=== PATIENT | female | born 1960 | race American Indian/Alaskan Native ===

== ENCOUNTER 2016-12-23 20:43 | Emergency (ER) | payer MEDICARE ==
--- NOTE | 2016-12-24 00:49 | Emergency Department Report ---
HPI - General Chief Complaint: Abdominal Pain Time Seen by Provider: 12/23/16 23:59 - HPI HPI: This is a 56-year-old [place] female who presents the emergency department with complaint of pain to the bilateral lower extremities as well as swelling for the past 3 days. The patient comes here from a transition house where she is currently living because her current house has too many steps to deal with and the patient just had surgery last Sunday. The patient had lumbar decompression and fusion by Dr. Brooks at [facility]. She has been taking medications for her back and does not complain of any worsening of her back discomfort or concern for infection. She denies any problems with bowel or bladder, numbness or paresthesias or any neurological deficits. She denies any history of CHF, DVT, PE. ED Past Medical Hx - Past Medical History Hx Hypertension: Yes Hx Congestive Heart Failure: Yes Hx Diabetes: No Hx GERD: Yes Hx Arthritis: Yes (Bilateral knees) Hx Psychiatric Treatment: Yes Hx Asthma: No Hx COPD: No Hx Dementia: Yes Hx HIV: No Additional medical history: Crack cocaine drug use, Staph infections - Surgical History Past Surgical History?: Yes Hx Cholecystectomy: Yes Hx Appendectomy: Yes Additional Surgical History: Back surgery, Left knee surgery, Polinidal cyst removed. Bladder sling, Jim foot surgery, Jim hand surgery, Esophagus surgery, hysterectomy - Social History Smoking Status: Current Every Day Smoker Substance Use Type: None - Medications Home Medications: Home Medications Medication Instructions Recorded Confirmed Last Taken Type Losartan/Hydrochlorothiazide 1 each PO DAILY 06/13/14 10/30/16 Unknown History [Hyzaar 100-25 TAB] Potassium Chloride [K-Dur] 20 meq PO BID 06/13/14 10/30/16 Unknown History Ondansetron [Zofran Odt] 8 mg PO BID 05/16/16 10/30/16 Unknown History Hydralazine HCl [Apresoline TAB] 50 mg PO BID 10/30/16 10/30/16 Unknown History Oxymorphone HCl [Opana ER] 10 mg PO Q8H 10/30/16 10/30/16 Unknown History Paroxetine HCl [PARoxetine] 40 mg PO QAM 10/30/16 10/30/16 Unknown History Diazepam 5 mg PO QID 11/01/16 11/01/16 Unknown History HYDROcodone/APAP 7.5-325 [[place] 7.5 mg PO Q6H 11/01/16 11/01/16 Unknown History 7.5-325 mg per 15 ML] Aspirin [Aspirin BABY CHEW TAB] 81 mg PO QDAY #30 tab.chew 11/02/16 Unknown Rx Diltiazem Cd [Cardizem CD] 240 mg PO QDAY #30 capsule 11/02/16 Unknown Rx Esomeprazole Magnesium [NexIUM] 40 mg PO DAILY #30 capsule.dr 11/02/16 Unknown Rx Levofloxacin [Levaquin] 750 mg PO QDAY #7 tablet 11/02/16 Unknown Rx PARoxetine 40 mg PO DAILY #30 11/02/16 Unknown Rx Pramipexole [Mirapex] 0.5 mg PO DAILY #30 tablet 11/02/16 Unknown Rx chlordiazePOXIDE [Librium] 10 mg PO Q8H #30 capsule 11/02/16 Unknown Rx oxyCODONE /ACETAMINOPHEN [Percocet 2 tab PO Q6H PRN #15 tablet 11/02/16 Unknown Rx 5/325 mg] ED Review of Systems ROS: Stated complaint: BODY PAIN Other details as noted in HPI Comment: All other systems reviewed and negative Constitutional: denies: chills, fever Eyes: denies: eye pain, eye discharge, vision change ENT: denies: ear pain, throat pain Respiratory: denies: cough, shortness of breath, wheezing Cardiovascular: edema. denies: chest pain, palpitations Gastrointestinal: denies: abdominal pain, nausea, diarrhea Genitourinary: denies: urgency, dysuria, discharge Musculoskeletal: arthralgia, myalgia Skin: denies: rash, lesions Neurological: denies: headache, weakness, paresthesias Physical Exam - Physical Exam Vital Signs: Vital Signs 12/23/16 12/23/16 12/23/16 21:02 21:11 22:54 Temperature 98 F 98 F 98 F Pulse Rate 85 85 87 Respiratory 18 18 18 Rate Blood Pressure 134/74 Blood Pressure 134/74 179/70 [Left] O2 Sat by Pulse 98 96 98 Oximetry 12/24/16 00:13 Temperature Pulse Rate 87 Respiratory 18 Rate Blood Pressure Blood Pressure 159/80 [Left] O2 Sat by Pulse 96 Oximetry Physical Exam: GENERAL: The patient is well-developed well-nourished. HEENT: Normocephalic. Atraumatic. Extraocular motions are intact. Patient has moist mucous membranes. Pupils equal reactive to light bilaterally. NECK: Supple. Trachea is midline. CHEST/LUNGS: Clear to auscultation. There is no respiratory distress noted. HEART/CARDIOVASCULAR: Regular. There is no tachycardia. There is no gallop rub or murmur. ABDOMEN: Abdomen is soft, nontender. Patient has normal bowel sounds. There is no abdominal distention. SKIN: Patient has mild to moderate right lateral lower extremity swelling. No skin color change, erythema, warmth, fluctuance or rash. NEURO: The patient is awake, alert, and oriented. The patient is cooperative. The patient has no focal neurologic deficits. The patient has normal speech and gait. Cranial nerves II through XII grossly intact. MUSCULOSKELETAL: There is no tenderness or deformity. There is no limitation range of motion. There is no evidence of acute injury. Muscle strength 5 out of 5 upper and lower extremities including EHL bilaterally. BACK: Patient has some mild tenderness to palpation along the upper lumbar and lower thoracic back where the patient has recent spinal surgery. However there is no signs of expanding hematoma, there is no bleeding or purulent drainage, no skin color changes to show any signs or symptoms of infection. They appear to be clean incisional wounds. ED Course Vital Signs 12/23/16 12/23/16 12/23/16 21:02 21:11 22:54 Temperature 98 F 98 F 98 F Pulse Rate 85 85 87 Respiratory 18 18 18 Rate Blood Pressure 134/74 Blood Pressure 134/74 179/70 [Left] O2 Sat by Pulse 98 96 98 Oximetry 12/24/16 00:13 Temperature Pulse Rate 87 Respiratory 18 Rate Blood Pressure Blood Pressure 159/80 [Left] O2 Sat by Pulse 96 Oximetry ED Medical Decision Making - Lab Data Result diagrams: 12/24/16 00:37 12/24/16 00:37 - Radiology Data Radiology results: report reviewed Bilateral lower extremity venous Doppler negative for DVT. - Medical Decision Making This is a 56-year-old female presents to the emergency department from her transitional rehabilitation Center with complaint of a few days of lower extremity swelling. Patient is postop from spinal fusion. There is been no further trauma. Patient's labs are mostly unremarkable. She has a low BNP level and has no complaints of shortness of breath. The swelling does not appear to be consistent with any cellulitis or rash. Patient eventually had a lower extremity venous Doppler bilaterally that did not have any signs of DVT. Patient was seen ambulatory in the emergency department and appeared stable doing so. She does not have any problems with bowel or bladder, numbness or paresthesias or any neurological deficits. She appears very low suspicion for any epidural abscess, cauda equina or cord compression syndrome. The patient has follow-up with her orthopedic spinal surgeon coming up this week. She has appropriate pain medications and is not complaining of any significant back discomfort. She appears safe for discharge back to her rehabilitation center and will return to the ER with any worsening of her symptoms or any acute distress. I thought about given the patient's more Lasix for some diuresis for her lower extremity swelling. However the patient does have some renal insufficiency. This appears to be acute on chronic as the patient has had episodes of renal insufficiency in the past. However I do not want to make her renal sufficiency worse and therefore we are avoiding Lasix at this time. - Differential Diagnosis DVT, CHF, venous stasis Critical Care Time: No Critical care attestation.: If time is entered above; I have spent that time in minutes in the direct care of this critically ill patient, excluding procedure time. ED Disposition Clinical Impression: Swelling of both lower extremities, Bilateral leg pain, Renal insufficiency Disposition: DISCHARGED TO HOME OR SELFCARE Is pt being admited?: No Condition: Stable Instructions: Leg Edema (ED), Arthralgia (ED), Impaired Kidney Function (ED) Additional Instructions: Please follow-up with your orthopedic surgeon as previous scheduled. Follow-up with your primary care doctor in the next few days. Return to the emergency department with any worsening of your symptoms or any acute distress. Referrals: DAE ORTEGA MD [Primary Care Provider] - 3-5 Days Time of Disposition: 07:11
[2016-12-24 00:51] LABS: Basophils % (Auto) 0.8 % (0.0-1.8); Eosinophils % (Auto) 3.5 % (0.0-4.3); Hematocrit 28.4 % (30.3-42.9); Hemoglobin 9.3 gm/dl (10.1-14.3); Mean Corpuscular HGB Conc 33 % (30-34); Mean Corpuscular Hemoglobin 28 pg (28-32); Mean Corpuscular Volume 86 fl (79-97); Platelet Count 292 K/mm3 (140-440); Red Cell Distribution Width 15.7 % (13.2-15.2); White Blood Count 7.6 K/mm3 (4.5-11.0)
[2016-12-24 00:54] LABS: Bilirubin,Urine NEG (Negative); Blood,Urine NEG (Negative); Ketones,Urine NEG (Negative); Leukocyte Esterase,Urine NEG (Negative); Nitrite,Urine NEG (Negative); Protein,Urine <15 mg/dL mg/dL (Negative); RBC,Urine < 1.0 /HPF (0.0-6.0); Urobilinogen,Urine < 2.0 mg/dL (<2.0)
[2016-12-24 01:16] LABS: Alanine Aminotransferase 8 units/L (7-56); Albumin 3.4 g/dL (3.9-5); Alkaline Phosphatase 120 units/L (35-129); Anion Gap 22 mmol/L; BUN/Creatinine Ratio 17.89; Bilirubin,Total 0.3 mg/dL (0.1-1.2); Blood Urea Nitrogen 34 mg/dL (7-17); Calcium 8.3 mg/dL (8.4-10.2); Carbon Dioxide 18 mmol/L (22-30); Glucose 118 mg/dL (65-100); Lipase 33 units/L (13-60); Potassium 4.2 mmol/L (3.6-5.0); Sodium 142 mmol/L (137-145); Total Protein 6.9 g/dL (6.3-8.2)
[2016-12-24] MEDS ORDERED: DILAUDID IV ONE ×2 (01:18→09:04)
[2016-12-24 01:34] LABS: Bilirubin,Direct < 0.2 mg/dL (0-0.2); Bilirubin,Indirect 0.1 mg/dL
[2016-12-24 05:27] VITALS: BP 180/96
[2016-12-24] MEDS ORDERED: DILAUDID ONE (08:55)
== END 2016-12-24 11:39 | disposition home or self-care (01) ==
LOC: ED 20:43
DX: R22.43 Localized swelling, mass and lump, lower limb, bilateral (principal); N28.9 Disorder of kidney and ureter, unspecified; M79.604 Pain in right leg; M79.605 Pain in left leg; I10 Essential (primary) hypertension; I50.9 Heart failure, unspecified; K21.9 Gastro-esophageal reflux disease without esophagitis; M17.0 Bilateral primary osteoarthritis of knee; F03.90 Unspecified dementia, unspecified severity, without behavioral disturbance, psychotic disturbance, mood disturbance, and anxiety; F17.200 Nicotine dependence, unspecified, uncomplicated; Z79.82 Long term (current) use of aspirin
CPT/HCPCS: 36415; 80048; 80074; 81001; 83690; 83880; 85025; 93970; 96374; 96376; 99285; J1170

== ENCOUNTER 2022-05-02 18:15 | Inpatient (IN) | payer MEDICARE ==
[2022-05-02] MEDS ORDERED: SODIUM CHLORIDE 0.9% 1000 ML 1,000 ML IV ONE (21:04)
--- NOTE | 2022-05-02 21:10 | Emergency Department Report ---
- General Chief complaint: Weakness Stated complaint: GENERAL WEAKNESS Time Seen by Provider: 05/02/22 21:04 Source: patient, EMS Mode of arrival: Stretcher Limitations: No Limitations - History of Present Illness Initial comments: 52-year-old female with history of hypertension, heart failure and arthritis who now presents with generalized body weakness with a fall from bed 2 days ago and was unable to get up. Patient denies any fever or chills. No urinary symptoms reported. No other modifying or associated factors reported. MD Complaint: generalized weakness - Related Data Home Medications Medication Instructions Recorded Confirmed Last Taken Ondansetron [Zofran Odt] 8 mg PO BID 05/16/16 07/21/19 Unknown Hydralazine HCl [Apresoline TAB] 50 mg PO BID 10/30/16 07/21/19 Unknown HYDROcodone/Acetaminop 7.5-325 7.5 mg PO Q6H 11/01/16 07/21/19 Unknown [[place] 7.5-325 mg per 15 ML] FLUoxetine HCL [Prozac] 20 mg PO DAILY 07/21/19 07/21/19 Unknown Previous Rx's Medication Instructions Recorded Last Taken Type Aspirin [Aspirin BABY CHEW TAB] 81 mg PO QDAY #30 tab.chew 07/23/19 Unknown Rx Benztropine [Cogentin] 1 mg PO TID #90 07/23/19 Unknown Rx Gabapentin 100 mg PO Q8HR #90 cap 07/23/19 Unknown Rx Ipratropium/Albuter (Nf) 2 puff IH QID #1 inha 07/23/19 Unknown Rx [Combivent (Nf)] Isosorbide Dinitrate [Isosorbide 30 mg PO DAILY #30 07/23/19 Unknown Rx Dinitrate ER] Lasix TAB 40 mg PO DAILY #30 07/23/19 Unknown Rx Losartan [Cozaar] 100 mg PO DAILY #30 tablet 07/23/19 Unknown Rx Mirtazapine [Remeron 15mg TAB] 15 mg PO PRN #30 07/23/19 Unknown Rx PARoxetine [Paxil] 40 mg PO DAILY #30 tablet 07/23/19 Unknown Rx Pantoprazole [Protonix TAB] 40 mg PO DAILY #30 tablet 07/23/19 Unknown Rx Potassium Chloride [K-Dur] 20 meq PO QDAY #30 07/23/19 Unknown Rx Pramipexole [Mirapex] 0.5 mg PO DAILY #30 tablet 07/23/19 Unknown Rx Zolpidem [Ambien] 5 mg PO QHS PRN #30 tablet 07/23/19 Unknown Rx amLODIPine 5 mg PO DAILY #30 07/23/19 Unknown Rx carvediloL [Coreg] 12.5 mg PO BID #60 07/23/19 Unknown Rx oxyCODONE /ACETAMINOPHEN [Percocet 2 tab PO Q6H PRN #15 tablet 07/23/19 Unknown Rx 5/325 mg] Allergies Allergy/AdvReac Type Severity Reaction Status Date / Time lisinopril Allergy Swelling Verified 05/02/22 18:21 morphine Allergy Swelling Verified 05/02/22 18:21 ED Review of Systems ROS: Stated complaint: GENERAL WEAKNESS Other details as noted in HPI Comment: All other systems reviewed and negative Constitutional: weakness Musculoskeletal: myalgia Neurological: weakness ED Past Medical Hx - Past Medical History Previous Medical History?: Yes Hx Hypertension: Yes Hx Congestive Heart Failure: Yes Hx Diabetes: No Hx GERD: Yes Hx Arthritis: Yes (Bilateral knees) Hx Psychiatric Treatment: Yes Hx Asthma: No Hx COPD: No Hx Dementia: Yes Hx HIV: No Additional medical history: Crack cocaine drug use, Staph infections - Surgical History Past Surgical History?: Yes Hx Cholecystectomy: Yes Hx Appendectomy: Yes Additional Surgical History: Back surgery, Left knee surgery, Polinidal cyst removed. Bladder sling, Jim foot surgery, Jim hand surgery, Esophagus surgery, hysterectomy - Social History Smoking Status: Unknown if ever smoked Substance Use Type: None - Medications Home Medications: Home Medications Medication Instructions Recorded Confirmed Last Taken Type Ondansetron [Zofran Odt] 8 mg PO BID 05/16/16 07/21/19 Unknown History Hydralazine HCl [Apresoline TAB] 50 mg PO BID 10/30/16 07/21/19 Unknown History HYDROcodone/Acetaminop 7.5-325 7.5 mg PO Q6H 11/01/16 07/21/19 Unknown History [[place] 7.5-325 mg per 15 ML] FLUoxetine HCL [Prozac] 20 mg PO DAILY 07/21/19 07/21/19 Unknown History Aspirin [Aspirin BABY CHEW TAB] 81 mg PO QDAY #30 tab.chew 07/23/19 Unknown Rx Benztropine [Cogentin] 1 mg PO TID #90 07/23/19 Unknown Rx Gabapentin 100 mg PO Q8HR #90 cap 07/23/19 Unknown Rx Ipratropium/Albuter (Nf) 2 puff IH QID #1 inha 07/23/19 Unknown Rx [Combivent (Nf)] Isosorbide Dinitrate [Isosorbide 30 mg PO DAILY #30 07/23/19 Unknown Rx Dinitrate ER] Lasix TAB 40 mg PO DAILY #30 07/23/19 Unknown Rx Losartan [Cozaar] 100 mg PO DAILY #30 tablet 07/23/19 Unknown Rx Mirtazapine [Remeron 15mg TAB] 15 mg PO PRN #30 07/23/19 Unknown Rx PARoxetine [Paxil] 40 mg PO DAILY #30 tablet 07/23/19 Unknown Rx Pantoprazole [Protonix TAB] 40 mg PO DAILY #30 tablet 07/23/19 Unknown Rx Potassium Chloride [K-Dur] 20 meq PO QDAY #30 07/23/19 Unknown Rx Pramipexole [Mirapex] 0.5 mg PO DAILY #30 tablet 07/23/19 Unknown Rx Zolpidem [Ambien] 5 mg PO QHS PRN #30 tablet 07/23/19 Unknown Rx amLODIPine 5 mg PO DAILY #30 07/23/19 Unknown Rx carvediloL [Coreg] 12.5 mg PO BID #60 07/23/19 Unknown Rx oxyCODONE /ACETAMINOPHEN [Percocet 2 tab PO Q6H PRN #15 tablet 07/23/19 Unknown Rx 5/325 mg] ED Physical Exam - General Limitations: No Limitations General appearance: alert, in no apparent distress - Head Head exam: Present: normal inspection - Eye Eye exam: Present: normal appearance Pupils: Present: normal accommodation - ENT ENT exam: Present: normal exam, normal orophraynx, mucous membranes dry - Neck Neck exam: Present: normal inspection, full ROM. Absent: tenderness - Respiratory Respiratory exam: Present: normal lung sounds bilaterally. Absent: respiratory distress, accessory muscle use - Cardiovascular Cardiovascular Exam: Present: regular rate, normal rhythm, normal heart sounds - GI/Abdominal GI/Abdominal exam: Present: soft, normal bowel sounds. Absent: distended, tenderness - Extremities Exam Extremities exam: Present: normal inspection, normal capillary refill. Absent: tenderness, pedal edema - Back Exam Back exam: Absent: tenderness - Neurological Exam Neurological exam: Present: alert, oriented X3 - Psychiatric Psychiatric exam: Present: normal affect, normal mood - Skin Skin exam: Present: warm, normal color ED Course Vital Signs 05/02/22 05/02/22 05/02/22 18:19 20:14 21:22 Temperature 97.9 F Pulse Rate 100 H 85 Respiratory 14 16 Rate Blood Pressure 106/70 146/67 [Left] O2 Sat by Pulse 95 95 95 Oximetry - Consultations Consultation #1: 05/02/22 23:55 Dr Jordan consulted who accept pt for further evaluation and treatment ED Medical Decision Making - Lab Data Result diagrams: 05/02/22 22:01 05/02/22 22:01 - EKG Data -: EKG Interpreted by Me EKG shows normal: sinus rhythm Rate: normal - EKG Data 05/02/22 23:53 EG noted with normal sinus rhythm at a rate of 80 bpm, with LVH in this abnormal ECG. - Medical Decision Making here with generalized muscle weakness-- concern for rhabdomyelitis considering the extensive staying on the floor for the last 2 days--we will go ahead and hydrate and check routine labs including total CK-- Lab reviewed and noted with elevated total CK with acute renal failure with elevated BUN/Cr that is likely as a result of dehydration that lead to rhabdomyelitis-- Dr Jordan consulted for admission Critical care attestation.: If time is entered above; I have spent that time in minutes in the direct care of this critically ill patient, excluding procedure time. ED Disposition Clinical Impression: Generalized weakness Rhabdomyolysis Qualifiers: Rhabdomyolysis type: non-traumatic Qualified Code(s): M62.82 - Rhabdomyolysis Disposition: ADMITTED INPATIENT Is pt being admited?: Yes Does the pt Need Aspirin: No Condition: Stable Instructions: Weakness, [id number] Referrals: PRIMARY CARE, [Primary Care Provider] - 3-5 Days Time of Disposition: 23:56
[2022-05-02 22:31] LABS: Basophils % (Auto) 0.2 % (0.0-1.8); Hematocrit 35.5 % (30.3-42.9); Hemoglobin 11.3 gm/dl (10.1-14.3); Lymphocytes % (Auto) 26.1 % (13.4-35.0); Mean Corpuscular HGB Conc 32 % (30-34); Mean Corpuscular Volume 88 fl (79-97); Monocytes # (Auto) 0.9 K/mm3 (0.0-0.8); Monocytes % (Auto) 8.2 % (0.0-7.3); Platelet Count 191 K/mm3 (140-440); Red Blood Count 4.04 M/mm3 (3.65-5.03); Red Cell Distribution Width 17.3 % (13.2-15.2)
[2022-05-02 22:41] LABS: INR 0.98 (0.87-1.13)
[2022-05-02 22:48] LABS: Albumin 3.7 g/dL (3.9-5); Calcium 8.6 mg/dL (8.4-10.2)
[2022-05-02] MEDS ORDERED: MORPHINE 4 MG/1 ML INJ IV PRN (23:57)
[2022-05-02] MEDS ORDERED: ALBUTEROL 2.5 MG/3 ML NEBU IH PRN (23:57)
[2022-05-02] MEDS ORDERED: MORPHINE 2 MG/1 ML INJ IV PRN (23:57)
--- NOTE | 2022-05-03 00:05 | History and Physical Report ---
History of Present Illness Date of examination: 05/03/22 Date of admission: 05/03/22 Chief complaint: Generalized weakness History of present illness: 52-year-old female with history of hypertension, heart failure and arthritis who now presents with generalized body weakness with a fall from bed 2 days ago and was unable to get up. Patient denies any fever or chills. No urinary symptoms reported. No other modifying or associated factors reported. In the emergency room patient is found to have BUN of 78 and creatinine 6.2 also CK 1166.Lab reviewed and noted with elevated total CK with acute renal failure with elevated BUN/Cr that is likely as a result of dehydration that lead to rhabdomyolysis and PEYTON. We will put the patient on IV fluid and will consult nephrology for evaluation Past History Past Medical History: arthritis, GERD, heart failure, hypertension, other (Crack cocaine drug use, Staph infections, dementia psychiatric) Past Surgical History: cholecystectomy, hysterectomy, Other (Back surgery, Left knee surgery, Polinidal cyst removed. Bladder sling, Jim foot surgery, Jim hand surgery, Esophagus surgery, hysterectomy, appendectomy) Social history: no significant social history Family history: hypertension Medications and Allergies Allergies Allergy/AdvReac Type Severity Reaction Status Date / Time lisinopril Allergy Swelling Verified 05/02/22 18:21 morphine Allergy Swelling Verified 05/02/22 18:21 Home Medications Medication Instructions Recorded Confirmed Last Taken Type Ondansetron [Zofran Odt] 8 mg PO BID 05/16/16 07/21/19 Unknown History Hydralazine HCl [Apresoline TAB] 50 mg PO BID 10/30/16 07/21/19 Unknown History HYDROcodone/Acetaminop 7.5-325 7.5 mg PO Q6H 11/01/16 07/21/19 Unknown History [[place] 7.5-325 mg per 15 ML] FLUoxetine HCL [Prozac] 20 mg PO DAILY 07/21/19 07/21/19 Unknown History Aspirin [Aspirin BABY CHEW TAB] 81 mg PO QDAY #30 tab.chew 07/23/19 Unknown Rx Benztropine [Cogentin] 1 mg PO TID #90 07/23/19 Unknown Rx Gabapentin 100 mg PO Q8HR #90 cap 07/23/19 Unknown Rx Ipratropium/Albuter (Nf) 2 puff IH QID #1 inha 07/23/19 Unknown Rx [Combivent (Nf)] Isosorbide Dinitrate [Isosorbide 30 mg PO DAILY #30 07/23/19 Unknown Rx Dinitrate ER] Lasix TAB 40 mg PO DAILY #30 07/23/19 Unknown Rx Losartan [Cozaar] 100 mg PO DAILY #30 tablet 07/23/19 Unknown Rx Mirtazapine [Remeron 15mg TAB] 15 mg PO PRN #30 07/23/19 Unknown Rx PARoxetine [Paxil] 40 mg PO DAILY #30 tablet 07/23/19 Unknown Rx Pantoprazole [Protonix TAB] 40 mg PO DAILY #30 tablet 07/23/19 Unknown Rx Potassium Chloride [K-Dur] 20 meq PO QDAY #30 07/23/19 Unknown Rx Pramipexole [Mirapex] 0.5 mg PO DAILY #30 tablet 07/23/19 Unknown Rx Zolpidem [Ambien] 5 mg PO QHS PRN #30 tablet 07/23/19 Unknown Rx amLODIPine 5 mg PO DAILY #30 07/23/19 Unknown Rx carvediloL [Coreg] 12.5 mg PO BID #60 07/23/19 Unknown Rx oxyCODONE /ACETAMINOPHEN [Percocet 2 tab PO Q6H PRN #15 tablet 07/23/19 Unknown Rx 5/325 mg] Review of Systems All systems: negative Constitutional: fatigue, weakness, malaise, other (Fall) Exam - Constitutional Vitals: Temp Pulse Resp BP Pulse Ox 97.9 F 85 16 146/67 95 05/02/22 18:19 05/02/22 20:14 05/02/22 20:14 05/02/22 20:14 05/02/22 21:22 General appearance: Present: no acute distress, well-nourished - EENT Eyes: Present: PERRL ENT: hearing intact, clear oral mucosa - Neck Neck: Present: supple, normal ROM - Respiratory Respiratory effort: normal Respiratory: bilateral: CTA - Cardiovascular Heart Sounds: Present: S1 & S2. Absent: rub, click - Extremities Extremities: pulses symmetrical, No edema Peripheral Pulses: within normal limits - Abdominal General gastrointestinal: Present: soft, non-tender, non-distended, normal bowel sounds Female genitourinary: Present: normal - Integumentary Integumentary: Present: clear, warm, dry - Musculoskeletal Musculoskeletal: gait normal, strength equal bilaterally - Psychiatric Psychiatric: appropriate mood/affect, intact judgment & insight - Neurologic Neurologic: CNII-XII intact, moves all extremities Results - Labs CBC & Chem 7: 05/02/22 22:01 05/02/22 22: Labs: Laboratory Last Values WBC 11.5 K/mm3 (4.5-11.0) H 05/02/22 22: RBC 4.04 M/mm3 (3.65-5.03) 05/02/22 22: Hgb 11.3 gm/dl (10.1-14.3) 05/02/22 22: Hct 35.5 % (30.3-42.9) 05/02/22 22: MCV 88 fl (79-97) 05/02/22 22: MCH 28 pg (28-32) 05/02/22 22: MCHC 32 % (30-34) 05/02/22: RDW 17.3 % (13.2-15.2) H 05/02/22 22: Plt Count 191 K/mm3 (140-440) 05/02/22 22: Lymph % (Auto) 26.1 % (13.4-35.0) 05/02/22 22: [place] % (Auto) 8.2 % (0.0-7.3) H 05/02/22 22: Eos % (Auto) 0.0 % (0.0-4.3) 05/02/22 22: Baso % (Auto) 0.2 % (0.0-1.8) 05/02/22 22: Lymph # (Auto) 3.0 K/mm3 (1.2-5.4) 05/02/22 22: [place] # (Auto) 0.9 K/mm3 (0.0-0.8) H 05/02/22 22: Eos # (Auto) 0.0 K/mm3 (0.0-0.4) 05/02/22 22: Baso # (Auto) 0.0 K/mm3 (0.0-0.1) 05/02/22 22: Seg Neutrophils % 65.5 % (40.0-70.0) 05/02/22 22: Seg Neutrophils # 7.5 K/mm3 (1.8-7.7) 05/02/22 22: PT 14.4 Sec. (12.2-14.9) 05/02/22 22: INR 0.98 (0.87-1.13) 05/02/22 22:01 Sodium 139 mmol/L (137-145) 05/02/22 22: Potassium 4.1 mmol/L (3.6-5.0) 05/02/22 22: Chloride 97.7 mmol/L (98-107) L 05/02/22 22: Carbon Dioxide 20 mmol/L (22-30) L 05/02/22 22:01 Anion Gap 25 mmol/L 05/02/22 22: BUN 78 mg/dL (7-17) H 05/02/22 22: Creatinine 6.2 mg/dL (0.6-1.2) H 05/02/22 22: Estimated GFR 8 ml/min 05/02/22 22: BUN/Creatinine Ratio 13 % 05/02/22 22: Glucose 85 mg/dL (65-100) 05/02/22 22: Calcium 8.6 mg/dL (8.4-10.2) 05/02/22 22: Total Bilirubin 0.30 mg/dL (0.1-1.2) 05/02/22 22: AST 42 units/L (5-40) H 05/02/22 22: ALT 16 units/L (7-56) 05/02/22 22: Alkaline Phosphatase 95 units/L (35-129) 05/02/22 22: Total Creatine Kinase 1166 units/L (30-135) H 05/02/22 22: Total Protein 7.6 g/dL (6.3-8.2) 05/02/22 22: Albumin 3.7 g/dL (3.9-5) L 05/02/22 22: Albumin/Globulin Ratio 0.9 % 05/02/22 22:01 Assessment and Plan VTE prophylaxis?: Mechanical Plan of care discussed with patient/family: Yes - Patient Problems (1) PEYTON (acute kidney injury) Current Visit: Yes Status: Acute Plan to address problem: Admit the patient to the medical telemetry. Avoid nephrotoxic drug. Renally dose medication. We will discontinue Lasix and losartan. D5 half-normal saline at the rate of 125 cc/h. Nephrology evaluation. Recheck BMP in the morning (2) Rhabdomyolysis Current Visit: Yes Status: Acute Qualifiers: Rhabdomyolysis type: non-traumatic Qualified Code(s): M62.82 - Rhabdomyolysis Plan to address problem: D5 half-normal saline at the rate of 125 cc/h. Nephrology evaluation. Recheck BMP and CK in the morning . (3) Generalized weakness Current Visit: Yes Status: Acute (4) CHF exacerbation Current Visit: No Status: Acute Plan to address problem: stable. We continue the home medication. Avoid fluid overload (5) Cardiomyopathy Current Visit: No Status: Acute Plan to address problem: Stable. We continue the home medication. Outpatient follow-up with cardiology (6) Cocaine abuse Current Visit: No Status: Acute Plan to address problem: We counseled the patient regarding quit taking cocaine. (7) Dementia Current Visit: Yes Status: Acute Plan to address problem: Stable. We continue the home medication. (8) DVT prophylaxis Current Visit: No Status: Acute Plan to address problem: SCD for DVT prophylaxis. Pepcid 20 mg p.o. twice daily for GI prophylaxis. Patient is a full code
[2022-05-03] MEDS: ACETAMINOPHEN 325 MG TAB PO PRN ×2 (01:31→13:15)
[2022-05-03] MEDS: D5W/0.45% NACL 1,000 ML IV SCH ×2 (01:50→09:11)
[2022-05-03] MEDS: IPRATROPIUM/ALBUTEROL SULFATE 3 ML AMPUL.NEB IH SCH ×4 (03:07→20:24)
[2022-05-03] MEDS: BENZTROPINE 1 MG TAB PO SCH ×3 (08:00→21:17)
--- NOTE | 2022-05-03 09:03 | XRay Report ---
CHEST 1 VIEW 05/03/2022 7:38 AM INDICATION / CLINICAL INFORMATION: Evaluate for heart failure vs pneumonia. COMPARISON: One view of the chest from 07/20/2019. FINDINGS: SUPPORT DEVICES: None. HEART / MEDIASTINUM: Similar mild cardiomegaly. No other significant abnormality. LUNGS / PLEURA: Mild bilateral interstitial opacities are seen without other significant pulmonary ab normalities. No significant pleural effusion. No pneumothorax. ADDITIONAL FINDINGS: No significant additional findings. IMPRESSION: Similar mild cardiomegaly with nonspecific bilateral pulmonary opacities, favored to represent atelec tasis/edema. Pneumonia cannot be entirely excluded. Signer Name: Julito Christine MD Signed: 05/03/2022 8:59 AM Workstation Name: [id number]
[2022-05-03] MEDS: ASPIRIN 81 MG TAB CHEW PO SCH (09:12)
[2022-05-03] MEDS: FAMOTIDINE 10 MG TAB PO SCH ×2 (09:12→21:17)
[2022-05-03] MEDS: carvediloL 12.5 MG TAB PO SCH ×2 (09:12→21:16)
[2022-05-03] MEDS: FLUoxetine 20 MG CAP PO SCH (09:12)
[2022-05-03] MEDS: amLODIPine 5 MG TAB PO SCH (09:12)
--- NOTE | 2022-05-03 09:12 | Consultation ---
History of Present Illness - Reason for Consult Consult date: 05/03/22 acute renal failure - History of Present Illness 52-year-old woman with history of hypertension, heart failure, and arthritis who presents with generalized body weakness, fall from bed 2 days ago and was unable to get up. 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 Patient denies any fever or chills. No urinary symptoms reported. Denies dyspnea, edema. Notes appetite was poor for past few days. Notes feeling weak still. Past History Past Medical History: arthritis, GERD, heart failure, hypertension, other (Crack cocaine drug use, Staph infections, dementia psychiatric) Past Surgical History: cholecystectomy, hysterectomy, Other (Back surgery, Left knee surgery, Polinidal cyst removed. Bladder sling, Jim foot surgery, Jim hand surgery, Esophagus surgery, hysterectomy, appendectomy) Social history: no significant social history Family history: hypertension Medications and Allergies Allergies Allergy/AdvReac Type Severity Reaction Status Date / Time lisinopril Allergy Swelling Verified 05/02/22 18:21 morphine Allergy Swelling Verified 05/02/22 18:21 Home Medications Medication Instructions Recorded Confirmed Last Taken Type Ondansetron [Zofran Odt] 8 mg PO BID 05/16/16 05/03/22 Unknown History Hydralazine HCl [Apresoline TAB] 50 mg PO BID 10/30/16 05/03/22 Unknown History HYDROcodone/Acetaminop 7.5-325 7.5 mg PO Q6H 11/01/16 05/03/22 Unknown History [[place] 7.5-325 mg per 15 ML] FLUoxetine HCL [Prozac] 20 mg PO DAILY 07/21/19 05/03/22 Unknown History Aspirin [Aspirin BABY CHEW TAB] 81 mg PO QDAY #30 tab.chew 07/23/19 05/03/22 Unknown Rx Benztropine [Cogentin] 1 mg PO TID #90 07/23/19 05/03/22 Unknown Rx Gabapentin 100 mg PO Q8HR #90 cap 07/23/19 05/03/22 Unknown Rx Ipratropium/Albuter (Nf) 2 puff IH QID #1 inha 07/23/19 05/03/22 Unknown Rx [Combivent (Nf)] Isosorbide Dinitrate [Isosorbide 30 mg PO DAILY #30 07/23/19 05/03/22 Unknown Rx Dinitrate ER] Lasix TAB 40 mg PO DAILY #30 07/23/19 05/03/22 Unknown Rx Losartan [Cozaar] 100 mg PO DAILY #30 tablet 07/23/19 05/03/22 Unknown Rx Mirtazapine [Remeron 15mg TAB] 15 mg PO PRN #30 07/23/19 05/03/22 Unknown Rx PARoxetine [Paxil] 40 mg PO DAILY #30 tablet 07/23/19 05/03/22 Unknown Rx Pantoprazole [Protonix TAB] 40 mg PO DAILY #30 tablet 07/23/19 05/03/22 Unknown Rx Potassium Chloride [K-Dur] 20 meq PO QDAY #30 07/23/19 05/03/22 Unknown Rx Pramipexole [Mirapex] 0.5 mg PO DAILY #30 tablet 07/23/19 05/03/22 Unknown Rx Zolpidem [Ambien] 5 mg PO QHS PRN #30 tablet 07/23/19 05/03/22 Unknown Rx amLODIPine 5 mg PO DAILY #30 07/23/19 05/03/22 Unknown Rx carvediloL [Coreg] 12.5 mg PO BID #60 07/23/19 05/03/22 Unknown Rx oxyCODONE /ACETAMINOPHEN [Percocet 2 tab PO Q6H PRN #15 tablet 07/23/19 05/03/22 Unknown Rx 5/325 mg] Active Meds: Active Medications Acetaminophen (Acetaminophen 325 Mg Tab) 650 mg PO Q4H PRN PRN Reason: Pain MILD(1-3)/Fever >100.5/PALMA Last Admin: 05/03/22 01:31 Dose: 650 mg Albuterol (Albuterol 2.5 Mg/3 Ml Nebu) 2.5 mg IH Q3HRT PRN PRN Reason: Shortness Of Breath Albuterol/Ipratropium (Ipratropium/Albuterol Sulfate 3 Ml Ampul.Neb) 1 ampul IH Q6HRT [facility] Last Admin: 05/03/22 03:07 Dose: Not Given Amlodipine Besylate (Amlodipine 5 Mg Tab) 5 mg PO DAILY [facility] Aspirin (Aspirin 81 Mg Tab Chew) 81 mg PO QDAY LUCIO Benztropine Mesylate (Benztropine 1 Mg Tab) 1 mg PO TID LUCIO Carvedilol (Carvedilol 12.5 Mg Tab) 12.5 mg PO BID LUCIO Famotidine (Famotidine 10 Mg Tab) 10 mg PO BID LUCIO Fluoxetine HCl (Fluoxetine 20 Mg Cap) 20 mg PO DAILY [facility] Hydralazine HCl (Hydralazine 25 Mg Tab) 50 mg PO BID [facility] Dextrose/Sodium Chloride (D5/0.45ns) 1,000 mls @ 125 mls/hr IV DIRECT LUCIO Last Admin: 05/03/22 01:50 Dose: 125 mls/hr Isosorbide Mononitrate (Isosorbide Mononitrate Er 30 Mg Tab) 30 mg PO DAILY [facility] Ondansetron HCl (Ondansetron 4 Mg/2 Ml Inj) 4 mg IV Q8H PRN PRN Reason: Nausea And Vomiting Sodium Chloride (Sodium Chloride 0.9% 10 Ml Flush Syringe) 10 ml IV BID [facility] Sodium Chloride (Sodium Chloride 0.9% 10 Ml Flush Syringe) 10 ml IV PRN PRN PRN Reason: LINE FLUSH Review of Systems All systems: negative (as per HPI) Exam - Vital Signs Vital signs: Vital Signs Temp Pulse Resp BP Pulse Ox 97.9 F 100 H 14 106/70 95 05/02/22 18:19 05/02/22 18:19 05/02/22 18:19 05/02/22 18:19 05/02/22 18:19 - Physical Exam Narrative exam: General appearance: Present: no acute distress, well-nourished - EENT Eyes: Present: PERRL ENT: hearing intact, clear oral mucosa - Neck Neck: Present: supple, normal ROM - Respiratory Respiratory effort: normal Respiratory: bilateral: CTA - Cardiovascular Heart Sounds: Present: S1 & S2. - Extremities Extremities: pulses symmetrical, No edema Peripheral Pulses: within normal limits - Abdominal General gastrointestinal: Present: soft, non-distended, normal bowel sounds Female genitourinary: Present: normal - Integumentary Integumentary: Present: clear, warm, dry - Musculoskeletal Musculoskeletal: gait normal, strength equal bilaterally - Psychiatric Psychiatric: appropriate mood/affect, intact judgment & insight - Neurologic Neurologic: CNII-XII intact, moves all extremities Results - Lab Results 05/02/22 22:01 05/02/22 22:01 Most recent lab results Calcium 8.6 mg/dL (8.4-10.2) 05/02/22 22:01 Assessment and Plan # Acute Kidney Disease: suspect underlying CKD in setting of solitary kidney, cardiac disease. PEYTON likely due to rhabdomyolysis s/p fall vs tubular injury in setting of acute illness - isotonic fluid challenge for rhabdomyolysis as tolerated - renal ultrasound reviewed- note solitary kidney s/p surgery, no acute issues - check serologies, urinalysis, UP/C, PTH to help with chronicity, consider GN involvement - avoid nephrotoxins - agree to hold diuretic, MIA/ARB for now - renally dose medications - strict Is/Os - no immediate need for renal replacement therapy pending course # Mild Rhabdomyolysis: gentle IVF as tolerated # Lactic Acidosis, Possible Pneumonia: CXR noted, has history of CHF/cardiomyopathy # Dementia: per primary # HTN: BP stable on current regimen, avoid hypotension
[2022-05-03] MEDS: hydrALAZINE 25 MG TAB PO SCH ×2 (09:13→21:16)
[2022-05-03] MEDS ORDERED: FAMOTIDINE 20 MG TAB PO SCH (10:00)
[2022-05-03] MEDS ORDERED: NON-FORMULARY EACH (Hydralazine Hcl [Apresoline Tab] 50 MG Tablet) PO SCH (10:00)
[2022-05-03] MEDS ORDERED: ISOSORBIDE DINITRATE 40 MG PO SCH (10:00)
--- NOTE | 2022-05-03 11:01 | Ultrasound Report ---
ULTRASOUND RENAL INDICATION / CLINICAL INFORMATION: PEYTON. COMPARISON: None available. FINDINGS: RIGHT KIDNEY: Absent LEFT KIDNEY: Length = 10.1 cm. - Echogenicity: Normal. - Cortical Thickness: Normal. - Hydronephrosis: None. - Cyst / Mass: None. - Stones: None seen. URINARY BLADDER: No significant abnormality. FREE FLUID: None. ADDITIONAL FINDINGS: None. IMPRESSION: 1. Status post right nephrectomy, otherwise no significant sonographic abnormality. Signer Name: Sotero Lee DO Signed: 05/03/2022 10:56 AM Workstation Name: [id number]
--- NOTE | 2022-05-03 11:16 | Electrocardiograph Report ---
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
--- NOTE | 2022-05-03 11:42 | Event Note ---
Date: 05/03/22 Patient was evaluated this morning, she was found to be hemodynamically stable. Patient did become febrile early in the morning to a temp of 101.1. The patient will continue further work-up due to concerns for sepsis in the setting of acute respiratory failure. #Acute hypoxic respiratory failure #Possible COVID-19 pneumonia #Lactic acidosis Lactic acid 3.0. Continue trending lactic acid until unremarkable. - etiology: Possible COVID-19 infection - baseline oxygen requirements: Room air - supplemental oxygen: 3 L nasal cannula - Continue protocol: continue pulse oximetry, wean oxygen as tolerated, airborne and droplet precautions. Pending coronavirus PCR, BNP, procalcitonin. Chest x-ray revealing nonspecific bilateral pulmonary opacities that could represent atelectasis versus edema versus pneumonia. 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 Nephrology consulted; pending recs. Pending renal ultrasound. #Rhabdomyolysisruled out CK 1166. Discontinuing aggressive IV fluid resuscitation due to possible volume overload. #Chronic systolic heart failure #Cardiomyopathy Continue goal-directed therapy #Dementia Continue to orient the patient, open blinds during the daylight, and turn off TV and lights at 10 PM #Mild protein caloric malnutrition Albumin 3.7 Starting dietary supplementation. #Coordination of CARE time: 30 minutes. Total visit time equals 30 or more minutes with greater than 50% spent [id number] on coordination of care and counseling. #Advanced care planning -Disease education conducted, care plan discussed, diagnoses discussed, prognosis discussed, and patient acknowledges understanding with care plan -Time: +30 min
[2022-05-03 13:02] LABS: Basophils % (Auto) 0.2 % (0.0-1.8); Eosinophils % (Auto) 0.3 % (0.0-4.3); Hematocrit 31.3 % (30.3-42.9); Hemoglobin 10.2 gm/dl (10.1-14.3); Lymphocytes # (Auto) 1.5 K/mm3 (1.2-5.4); Lymphocytes % (Auto) 14.3 % (13.4-35.0); Mean Corpuscular HGB Conc 33 % (30-34); Mean Corpuscular Volume 87 fl (79-97); Monocytes # (Auto) 0.8 K/mm3 (0.0-0.8); Monocytes % (Auto) 7.5 % (0.0-7.3); Platelet Count 159 K/mm3 (140-440); Red Blood Count 3.59 M/mm3 (3.65-5.03); Red Cell Distribution Width 17.2 % (13.2-15.2)
[2022-05-03 13:03] LABS: Calcium 8.4 mg/dL (8.4-10.2)
[2022-05-03] MEDS: SODIUM CHLORIDE 0.9% 1000 ML 1,000 ML IV SCH (16:01)
[2022-05-03 17:11] LABS: Protein/Creatinine Ratio,Urine 0.24
[2022-05-03 17:24] LABS: Bilirubin,Urine Negative (Negative); Blood,Urine Negative (Negative); Color,Urine Yellow (Yellow); Protein,Urine <30 mg dL mg/dL (Negative); Urobilinogen,Urine < 2.0 mg/dL (<2.0)
[2022-05-04] MEDS: ACETAMINOPHEN 325 MG TAB PO PRN (02:31)
[2022-05-04] MEDS: SODIUM CHLORIDE 0.9% 1000 ML 1,000 ML IV SCH (05:49)
[2022-05-04] MEDS: BENZTROPINE 1 MG TAB PO SCH ×3 (07:50→20:38)
[2022-05-04] MEDS: IPRATROPIUM/ALBUTEROL SULFATE 3 ML AMPUL.NEB IH SCH ×3 (09:31→20:17)
[2022-05-04] MEDS: FLUoxetine 20 MG CAP PO SCH (10:00)
[2022-05-04] MEDS: FAMOTIDINE 10 MG TAB PO SCH ×2 (10:00→21:32)
[2022-05-04] MEDS: ASPIRIN 81 MG TAB CHEW PO SCH (10:00)
[2022-05-04] MEDS: hydrALAZINE 25 MG TAB PO SCH ×2 (10:00→21:32)
[2022-05-04] MEDS: carvediloL 12.5 MG TAB PO SCH ×2 (10:00→21:33)
[2022-05-04] MEDS: amLODIPine 5 MG TAB PO SCH (10:01)
[2022-05-04 11:57] LABS: Hematocrit 30.2 % (30.3-42.9); Hemoglobin 9.9 gm/dl (10.1-14.3); Mean Corpuscular HGB Conc 33 % (30-34); Mean Corpuscular Volume 87 fl (79-97); Platelet Count 151 K/mm3 (140-440); Red Blood Count 3.46 M/mm3 (3.65-5.03); Red Cell Distribution Width 17.4 % (13.2-15.2)
--- NOTE | 2022-05-04 12:07 | Progress Note ---
Assessment and Plan Assessment and plan: Patient was evaluated this morning, she was found to be hemodynamically stable. Patient did become febrile early in the morning to a temp of 101.1. The patient will continue further work-up due to concerns for sepsis in the setting of acute respiratory failure. #Acute hypoxic respiratory failure #Possible COVID-19 pneumonia #Lactic acidosis-resolved Lactic acid 3.0-->1.5 - etiology: Possible COVID-19 infection - baseline oxygen requirements: Room air - supplemental oxygen: 3 L nasal cannula - Continue protocol: continue pulse oximetry, wean oxygen as tolerated, airborne and droplet precautions. Pending coronavirus PCR. Unremarkable BNP and procalcitonin. Chest x-ray revealing nonspecific bilateral pulmonary opacities that could represent atelectasis versus edema versus pneumonia. - continue to monitor #PEYTON on CKD stage 4 Creatinine 6.2-->3.9 (baseline currently unknown) Renally dose meds and avoid nephrotoxic drugs. Nephrology consulted; pending recs. Pending renal ultrasound. #Rhabdomyolysisruled out CK 1166. Discontinuing aggressive IV fluid resuscitation due to possible volume overload. #Chronic systolic heart failure #Cardiomyopathy Continue goal-directed therapy. Unremarkable BMP. #Dementia Continue to orient the patient, open blinds during the daylight, and turn off TV and lights at 10 PM #Mild protein caloric malnutrition Albumin 3.7 Continue dietary supplementation. #Advanced care planning -Disease education conducted, care plan discussed, diagnoses discussed, prognosis discussed, and patient acknowledges understanding with care plan -Time: +30 min Disposition Plan: Continue medical management Total Time Spent with Patient (Minutes): 45-minute History Interval history: No acute events overnight. Hospitalist Physical - Constitutional Vitals: Temp Pulse Resp BP Pulse Ox 97.6 F 80 20 135/64 98 05/03/22 16:56 05/04/22 09:30 05/04/22 09:30 05/03/22 21:16 05/04/22 09:32 General appearance: Present: no acute distress, well-nourished - EENT Eyes: Present: PERRL, EOM intact ENT: hearing intact, clear oral mucosa, dentition normal - Neck Neck: Present: supple, normal ROM - Respiratory Respiratory effort: normal Respiratory: bilateral: diminished (3 L nasal cannula) - Cardiovascular Rhythm: regular Heart Sounds: Present: S1 & S2 - Extremities Extremities: no ischemia, pulses intact, pulses symmetrical, No edema, normal temperature, normal color Peripheral Pulses: within normal limits - Abdominal General gastrointestinal: soft, non-tender, non-distended, normal bowel sounds - Integumentary Integumentary: Present: clear, warm, dry - Psychiatric Psychiatric: appropriate mood/affect, intact judgment & insight, memory intact, cooperative - Neurologic Neurologic: CNII-XII intact, moves all extremities - Allied Health Allied health notes reviewed: nursing, case management Results - Labs CBC & Chem 7: 05/04/22 11:22 05/04/22 05:25 Labs: Laboratory Last Values WBC 10.5 K/mm3 (4.5-11.0) 05/04/22 11: RBC 3.46 M/mm3 (3.65-5.03) L 05/04/22 11: Hgb 9.9 gm/dl (10.1-14.3) L 05/04/22 11:22 Hct 30.2 % (30.3-42.9) L 05/04/22 11:22 MCV 87 fl (79-97) 05/04/22 11:22 MCH 29 pg (28-32) 05/04/22 11:22 MCHC 33 % (30-34) 05/04/22 11:22 RDW 17.4 % (13.2-15.2) H 05/04/22 11:22 Plt Count 151 K/mm3 (140-440) 05/04/22 11:22 Lymph % (Auto) Chief Chemist 05/04/22 11:22 [place] % (Auto) Chief Chemist 05/04/22 11:22 Eos % (Auto) Chief Chemist 05/04/22 11:22 Baso % (Auto) Chief Chemist 05/04/22 11:22 Lymph # (Auto) Chief Chemist 05/04/22 11:22 [place] # (Auto) Chief Chemist 05/04/22 11:22 Eos # (Auto) Chief Chemist 05/04/22 11:22 Baso # (Auto) Chief Chemist 05/04/22 11:22 Seg Neutrophils % Chief Chemist 05/04/22 11:22 Seg Neutrophils # Chief Chemist 05/04/22 11:22 PT 14.4 Sec. (12.2-14.9) 05/02/22 22:01 INR 0.98 (0.87-1.13) 05/02/22 22:01 Sodium 140 mmol/L (137-145) 05/04/22 05:25 Potassium 4.1 mmol/L (3.6-5.0) 05/04/22 05:25 Chloride 108.7 mmol/L (98-107) H 05/04/22 05:25 Carbon Dioxide 17 mmol/L (22-30) L 05/04/22 05:25 Anion Gap 18 mmol/L 05/04/22 05:25 BUN 58 mg/dL (7-17) H 05/04/22 05:25 Creatinine 3.9 mg/dL (0.6-1.2) H 05/04/22 05:25 Estimated GFR 14 ml/min 05/04/22 05:25 BUN/Creatinine Ratio 15 % 05/04/22 05:25 Glucose 98 mg/dL (65-100) 05/04/22 05:25 Lactic Acid 1.50 mmol/L (0.7-2.0) 05/03/22 12:13 Calcium 8.0 mg/dL (8.4-10.2) L 05/04/22 05:25 Phosphorus 3.20 mg/dL (2.5-4.5) 05/03/22 12:13 Total Bilirubin 0.30 mg/dL (0.1-1.2) 05/02/22 22:01 AST 42 units/L (5-40) H 05/02/22 22:01 ALT 16 units/L (7-56) 05/02/22 22:01 Alkaline Phosphatase 95 units/L (35-129) 05/02/22 22:01 Total Creatine Kinase 1166 units/L (30-135) H 05/02/22 22:01 NT-Pro-B Natriuret Pep 823.3 pg/mL (0-900) 05/03/22 12:13 Total Protein 7.6 g/dL (6.3-8.2) 05/02/22 22:01 Albumin 3.7 g/dL (3.9-5) L 05/02/22 22:01 Albumin/Globulin Ratio 0.9 % 05/02/22 22:01 Procalcitonin 51.09 ng/mL (<0.15) 05/03/22 12:13 PTH Intact 129.9 pg/mL (15-65) H 05/03/22 12:13 Urine Color Yellow (Yellow) 05/02/22 15:00 Urine Turbidity Clear (Clear) 05/02/22 15:00 Urine pH 5.0 (5.0-7.0) 05/02/22 15:00 Ur Specific [place] 1.010 (1.003-1.030) 05/02/22 15:00 Urine Protein <30 mg dl mg/dL (Negative) 05/02/22 15:00 Urine Glucose (UA) Negative mg/dL (Negative) 05/02/22 15:00 Urine Ketones Negative mg/dL (Negative) 05/02/22 15:00 Urine Blood Negative (Negative) 05/02/22 15:00 Urine Nitrite Negative (Negative) 05/02/22 15:00 Urine Bilirubin Negative (Negative) 05/02/22 15:00 Urine Urobilinogen < 2.0 mg/dL (<2.0) 05/02/22 15:00 Ur Leukocyte Esterase Negative (Negative) 05/02/22 15:00 Urine WBC (Auto) 1.0 /HPF (0.0-6.0) 05/02/22 15:00 Urine RBC (Auto) 1.0 /HPF (0.0-6.0) 05/02/22 15:00 U Epithel Cells (Auto) 1.0 /HPF (0-13.0) 05/02/22 15:00 Urine Creatinine 178.0 mg/dL (0.1-20.0) H 05/03/22 15:00 Protein/Creatinin Ratio 0.24 05/03/22 15:00 Urine Total Protein 42 mg/dL (5-11.8) H 05/03/22 15:00 Microbiology: Microbiology 05/03/22 12:20 Peripheral/Venous Blood Culture - Preliminary Culture in Progress 05/03/22 12:13 Peripheral/Venous Blood Culture - Preliminary Culture in Progress Gonzalez/IV: Voiding Method Indwelling Catheter Active Medications - Current Medications Current Medications: Generic Name Dose Route Start Last Admin Trade Name Freq PRN Reason Stop Dose Admin Acetaminophen 650 mg 05/02/22 23:57 05/04/22 02:31 Acetaminophen 325 Mg Tab PO 650 mg Q4H PRN Administration Pain MILD(1-3)/Fever >100.5/PALMA Albuterol 2.5 mg 05/02/22 23:57 05/04/22 03:33 Albuterol 2.5 Mg/3 Ml Nebu IH 2.5 mg Q3HRT PRN Administration Shortness Of Breath Albuterol/Ipratropium 1 ampul 05/03/22 20:00 05/04/22 09:31 Ipratropium/Albuterol Sulfate 3 Ml Ampul.Neb IH 1 ampul TIDRT LUCIO Administration Amlodipine Besylate 5 mg 05/03/22 10:00 05/04/22 10:01 Amlodipine 5 Mg Tab PO 5 mg DAILY LUCIO Administration Aspirin 81 mg 05/03/22 10:00 05/04/22 10:00 Aspirin 81 Mg Tab Chew PO 81 mg QDAY LUCIO Administration Benztropine Mesylate 1 mg 05/03/22 08:00 05/04/22 07:50 Benztropine 1 Mg Tab PO 1 mg TID LUCIO Administration Carvedilol 12.5 mg 05/03/22 10:00 05/04/22 10:00 Carvedilol 12.5 Mg Tab PO 12.5 mg BID LUCIO Administration Famotidine 10 mg 05/03/22 10:00 05/04/22 10:00 Famotidine 10 Mg Tab PO 10 mg BID LUCIO Administration Fluoxetine HCl 20 mg 05/03/22 10:00 05/04/22 10:00 Fluoxetine 20 Mg Cap PO 20 mg DAILY LUCIO Administration Hydralazine HCl 50 mg 05/03/22 10:00 05/04/22 10:00 Hydralazine 25 Mg Tab PO 50 mg BID LUCIO Administration Sodium Chloride 1,000 mls @ 75 mls/hr 05/03/22 09:30 05/04/22 05:49 Nacl 0.9% 1000 Ml IV 75 mls/hr DIRECT LUCIO Administration Isosorbide Mononitrate 30 mg 05/03/22 10:00 05/04/22 10:00 Isosorbide Mononitrate Er 30 Mg Tab PO 30 mg DAILY LUCIO Administration Ondansetron HCl 4 mg 05/02/22 23:57 Ondansetron 4 Mg/2 Ml Inj IV Q8H PRN Nausea And Vomiting Sodium Chloride 10 ml 05/03/22 10:00 05/04/22 10:01 Sodium Chloride 0.9% 10 Ml Flush Syringe IV 10 ml BID LUCIO Administration Sodium Chloride 10 ml 05/02/22 23:57 Sodium Chloride 0.9% 10 Ml Flush Syringe IV PRN PRN LINE FLUSH
[2022-05-04] MEDS ORDERED: ACETAMINOPHEN 325 MG TAB PO ONE (14:00)
--- NOTE | 2022-05-04 14:16 | Progress Note ---
Assessment and Plan # Acute Kidney Disease: suspect underlying CKD in setting of solitary kidney, cardiac disease. PEYTON likely due to rhabdomyolysis s/p fall vs tubular injury in setting of acute illness, creatinine improving 6.2->3.9 - continue isotonic fluid as tolerated - renal ultrasound reviewed- note solitary kidney s/p surgery, no acute issues - check serologies, urinalysis, UP/C bland so less concern for GN involvement - PTH 129 consistent with secondary hyperparathyroidism in CKD, Ca/P WNL - avoid nephrotoxins - agree to hold diuretic, MIA/ARB for now - renally dose medications - strict Is/Os - no immediate need for renal replacement therapy pending course # Mild Rhabdomyolysis: gentle IVF as tolerated # Lactic Acidosis, Possible Pneumonia: CXR noted, has history of CHF/cardiomyopathy, COVID test negative # Dementia: per primary # HTN: BP stable on current regimen, avoid hypotension Subjective Date of service: 05/04/22 Interval history: No acute issues noted, resting in bed Objective - Exam Narrative Exam: General appearance: Present: no acute distress, well-nourished - EENT Eyes: Present: PERRL ENT: hearing intact, clear oral mucosa - Neck Neck: Present: supple, normal ROM - Respiratory Respiratory effort: normal Respiratory: bilateral: CTA - Cardiovascular Heart Sounds: Present: S1 & S2. - Extremities Extremities: pulses symmetrical, No edema Peripheral Pulses: within normal limits - Abdominal General gastrointestinal: Present: soft, non-distended, normal bowel sounds Female genitourinary: Present: normal - Integumentary Integumentary: Present: clear, warm, dry - Musculoskeletal Musculoskeletal: gait normal, strength equal bilaterally - Psychiatric Psychiatric: appropriate mood/affect, intact judgment & insight - Neurologic Neurologic: CNII-XII intact, moves all extremities - Vital Signs Vital signs: Vital Signs - 12hr 05/04/22 05/04/22 05/04/22 03:34 09:30 09:32 Pulse Rate [ 77 80 Anterior Bilateral Throughout] Respiratory 20 20 Rate [Anterior Bilateral Throughout] O2 Sat by Pulse 98 Oximetry - Lab 05/04/22 11:22 05/04/22 05:25 Most recent lab results Calcium 8.0 mg/dL (8.4-10.2) L 05/04/22 05:25 Phosphorus 3.20 mg/dL (2.5-4.5) 05/03/22 12:13 Urine Creatinine 178.0 mg/dL (0.1-20.0) H 05/03/22 15:00 Urine Total Protein 42 mg/dL (5-11.8) H 05/03/22 15:00 Medications & Allergies - Medications Allergies/Adverse Reactions: Allergies lisinopril Allergy (Verified 05/02/22 18:21) Swelling morphine Allergy (Verified 05/02/22 18:21) Swelling Home Medications: Home Medications Medication Instructions Recorded Confirmed Last Taken Type Ondansetron [Zofran Odt] 8 mg PO BID 05/16/16 05/03/22 Unknown History Hydralazine HCl [Apresoline TAB] 50 mg PO BID 10/30/16 05/03/22 Unknown History HYDROcodone/Acetaminop 7.5-325 7.5 mg PO Q6H 11/01/16 05/03/22 Unknown History [[place] 7.5-325 mg per 15 ML] FLUoxetine HCL [Prozac] 20 mg PO DAILY 07/21/19 05/03/22 Unknown History Aspirin [Aspirin BABY CHEW TAB] 81 mg PO QDAY #30 tab.chew 07/23/19 05/03/22 Unknown Rx Benztropine [Cogentin] 1 mg PO TID #90 07/23/19 05/03/22 Unknown Rx Gabapentin 100 mg PO Q8HR #90 cap 07/23/19 05/03/22 Unknown Rx Ipratropium/Albuter (Nf) 2 puff IH QID #1 inha 07/23/19 05/03/22 Unknown Rx [Combivent (Nf)] Isosorbide Dinitrate [Isosorbide 30 mg PO DAILY #30 07/23/19 05/03/22 Unknown Rx Dinitrate ER] Lasix TAB 40 mg PO DAILY #30 07/23/19 05/03/22 Unknown Rx Losartan [Cozaar] 100 mg PO DAILY #30 tablet 07/23/19 05/03/22 Unknown Rx Mirtazapine [Remeron 15mg TAB] 15 mg PO PRN #30 07/23/19 05/03/22 Unknown Rx PARoxetine [Paxil] 40 mg PO DAILY #30 tablet 07/23/19 05/03/22 Unknown Rx Pantoprazole [Protonix TAB] 40 mg PO DAILY #30 tablet 07/23/19 05/03/22 Unknown Rx Potassium Chloride [K-Dur] 20 meq PO QDAY #30 07/23/19 05/03/22 Unknown Rx Pramipexole [Mirapex] 0.5 mg PO DAILY #30 tablet 07/23/19 05/03/22 Unknown Rx Zolpidem [Ambien] 5 mg PO QHS PRN #30 tablet 07/23/19 05/03/22 Unknown Rx amLODIPine 5 mg PO DAILY #30 07/23/19 05/03/22 Unknown Rx carvediloL [Coreg] 12.5 mg PO BID #60 07/23/19 05/03/22 Unknown Rx oxyCODONE /ACETAMINOPHEN [Percocet 2 tab PO Q6H PRN #15 tablet 07/23/19 05/03/22 Unknown Rx 5/325 mg] Active Medications: Generic Name Dose Route Start Last Admin Trade Name Freq PRN Reason Stop Dose Admin Acetaminophen 650 mg 05/02/22 23:57 05/04/22 02:31 Acetaminophen 325 Mg Tab PO 650 mg Q4H PRN Administration Pain MILD(1-3)/Fever >100.5/PALMA Albuterol 2.5 mg 05/02/22 23:57 05/04/22 03:33 Albuterol 2.5 Mg/3 Ml Nebu IH 2.5 mg Q3HRT PRN Administration Shortness Of Breath Albuterol/Ipratropium 1 ampul 05/03/22 20:00 05/04/22 09:31 Ipratropium/Albuterol Sulfate 3 Ml Ampul.Neb IH 1 ampul TIDRT LUCIO Administration Amlodipine Besylate 5 mg 05/03/22 10:00 05/04/22 10:01 Amlodipine 5 Mg Tab PO 5 mg DAILY LUCIO Administration Aspirin 81 mg 05/03/22 10:00 05/04/22 10:00 Aspirin 81 Mg Tab Chew PO 81 mg QDAY LUCIO Administration Benztropine Mesylate 1 mg 05/03/22 08:00 05/04/22 07:50 Benztropine 1 Mg Tab PO 1 mg TID LUCIO Administration Carvedilol 12.5 mg 05/03/22 10:00 05/04/22 10:00 Carvedilol 12.5 Mg Tab PO 12.5 mg BID LUCIO Administration Dexamethasone 8 mg 05/04/22 14:00 Dexamethasone 4 Mg/Ml Vial IV 05/13/22 10:01 DAILY LUCIO Famotidine 10 mg 05/03/22 10:00 05/04/22 10:00 Famotidine 10 Mg Tab PO 10 mg BID LUCIO Administration Fluoxetine HCl 20 mg 05/03/22 10:00 05/04/22 10:00 Fluoxetine 20 Mg Cap PO 20 mg DAILY LUCIO Administration Hydralazine HCl 50 mg 05/03/22 10:00 05/04/22 10:00 Hydralazine 25 Mg Tab PO 50 mg BID LUCIO Administration Sodium Chloride 1,000 mls @ 75 mls/hr 05/03/22 09:30 05/04/22 05:49 Nacl 0.9% 1000 Ml IV 75 mls/hr DIRECT LUCIO Administration Azithromycin 500 mg in 250 mls @ 250 mls/hr 05/04/22 14:00 Zithromax/Ns IV Q24H LUCIO Ceftriaxone Sodium 1 gm in 50 mls @ 100 mls/hr 05/04/22 14:00 Rocephin/Ns 1 Gm/50 Ml IV 05/09/22 13:59 Q24H [facility] Protocol Isosorbide Mononitrate 30 mg 05/03/22 10:00 05/04/22 10:00 Isosorbide Mononitrate Er 30 Mg Tab PO 30 mg DAILY LUCIO Administration Loperamide HCl 2 mg 05/04/22 14:03 Loperamide 2 Mg Cap PO Q4H LUCIO Ondansetron HCl 4 mg 05/02/22 23:57 Ondansetron 4 Mg/2 Ml Inj IV Q8H PRN Nausea And Vomiting Sodium Chloride 10 ml 05/03/22 10:00 05/04/22 10:01 Sodium Chloride 0.9% 10 Ml Flush Syringe IV 10 ml BID LUCIO Administration Sodium Chloride 10 ml 05/02/22 23:57 Sodium Chloride 0.9% 10 Ml Flush Syringe IV PRN PRN LINE FLUSH
[2022-05-04 14:44] LABS: Band Neutrophils # (Manual) 0.5 K/mm3; Basophils % (Manual) 0 % (0.0-1.8); Total Cells Counted 100
[2022-05-04 14:45] LABS: Ovalocytes 1+; Tear Drop Cells 1+
[2022-05-04 14:46] LABS: Platelet Estimate Consistent w Auto
[2022-05-04] MEDS: AZITHROMYCIN/NS 500 MG/250 ML 500 MG/250 ML BAG IV SCH (14:52)
[2022-05-04] MEDS: cefTRIAXone/NS 1 GM/50 ML 1 GM/50 ML BAG IV SCH (14:52)
[2022-05-04] MEDS: dexAMETHasone 4 MG/ML VIAL IV SCH (14:54)
[2022-05-04] MEDS: LOPERAMIDE 2 MG CAP PO SCH ×3 (15:12→23:26)
[2022-05-04] MEDS: ONDANSETRON 4 MG ODT TAB PO PRN (22:00)
[2022-05-05] MEDS: LOPERAMIDE 2 MG CAP PO SCH ×4 (04:51→19:00)
[2022-05-05 07:36] LABS: Basophils % (Auto) 0.1 % (0.0-1.8); Hematocrit 29.9 % (30.3-42.9); Hemoglobin 9.7 gm/dl (10.1-14.3); Lymphocytes # (Auto) 1.3 K/mm3 (1.2-5.4); Lymphocytes % (Auto) 14.9 % (13.4-35.0); Mean Corpuscular HGB Conc 32 % (30-34); Mean Corpuscular Volume 86 fl (79-97); Monocytes # (Auto) 0.3 K/mm3 (0.0-0.8); Monocytes % (Auto) 3.6 % (0.0-7.3); Platelet Count 210 K/mm3 (140-440); Red Blood Count 3.48 M/mm3 (3.65-5.03); Red Cell Distribution Width 17.5 % (13.2-15.2)
[2022-05-05] MEDS: IPRATROPIUM/ALBUTEROL SULFATE 3 ML AMPUL.NEB IH SCH ×3 (08:53→20:03)
--- NOTE | 2022-05-05 09:35 | Progress Note ---
Assessment and Plan Assessment and plan: Patient was evaluated this morning, she was found to be hemodynamically stable. Patient did become febrile early in the morning to a temp of 101.1. The patient will continue further work-up due to concerns for sepsis in the setting of acute respiratory failure. #Acute hypoxic respiratory failure #Possible COVID-19 pneumonia #Pneumonia secondary to gram-negative or atypical bacteria #Lactic acidosis-resolved Lactic acid 3.0-->1.5 - etiology: Possible COVID-19 infection versus pneumonia secondary to gram- negative or atypical bacteria. - baseline oxygen requirements: Room air - supplemental oxygen: 3 L nasal cannula - Continue protocol: continue pulse oximetry, wean oxygen as tolerated, airborne and droplet precautions. Unremarkable BNP and procalcitonin. Chest x-ray revealing nonspecific bilateral pulmonary opacities that could represent atelectasis versus edema versus pneumonia. Elevated inflammation markers that would normally indicate possible coronavirus infection; however coronavirus PCR unremarkable. D-dimer is 1339, ferritin 543, LDH 327, and pending CRP. Continue azithromycin 500 mg daily and Rocephin 1 g daily (started on 2). Continue IV dexamethasone 8 mg daily. Continue Robitussin every 6 hours. - continue to monitor #PEYTON on CKD stage 4improving Creatinine 6.2-->3.9--> 2.6 (baseline currently unknown) Renally dose meds and avoid nephrotoxic drugs. Nephrology consulted; appreciate recs. Renal ultrasound only remarkable for right nephrectomy. #Elevated D-dimer D-dimer 1339 Pending bilateral venous Dopplers to evaluate for possible DVT. Continue to monitor. #Diarrheaimproving Continue scheduled loperamide 2 mg every 6 hours. #Rhabdomyolysisruled out CK 1166. Discontinuing aggressive IV fluid resuscitation due to possible volume overload. #Chronic systolic heart failure #Cardiomyopathy Continue goal-directed therapy. Unremarkable BMP. #Dementia Continue to orient the patient, open blinds during the daylight, and turn off TV and lights at 10 PM #Mild protein caloric malnutrition Albumin 3.7 Continue dietary supplementation. #Advanced care planning -Disease education conducted, care plan discussed, diagnoses discussed, prognosis discussed, and patient acknowledges understanding with care plan -Time: +30 min Disposition Plan: Continue medical management Total Time Spent with Patient (Minutes): 45 minutes History Interval history: No acute events overnight. Hospitalist Physical - Constitutional Vitals: Temp Pulse Resp BP Pulse Ox 98.9 F 73 18 136/63 98 05/04/22 20:45 05/05/22 08:53 05/05/22 08:53 05/04/22 21:33 05/05/22 08:53 General appearance: Present: severe distress, well-nourished - EENT Eyes: Present: PERRL, EOM intact ENT: hearing intact, clear oral mucosa, dentition normal - Neck Neck: Present: supple, normal ROM - Respiratory Respiratory effort: labored Respiratory: bilateral: diminished (On 3 L nasal cannula) - Cardiovascular Rhythm: regular Heart Sounds: Present: S1 & S2 - Extremities Extremities: no ischemia, pulses intact, pulses symmetrical, No edema, normal temperature, normal color Peripheral Pulses: within normal limits - Abdominal General gastrointestinal: soft, non-tender, non-distended, normal bowel sounds - Integumentary Integumentary: Present: clear, warm, dry - Psychiatric Psychiatric: appropriate mood/affect, intact judgment & insight, memory intact, cooperative - Neurologic Neurologic: CNII-XII intact, moves all extremities - Allied Health Allied health notes reviewed: nursing Results - Labs CBC & Chem 7: 05/05/22 06:53 05/05/22 06:53 Labs: Laboratory Last Values WBC 8.4 K/mm3 (4.5-11.0) 05/05/22 06:53 RBC 3.48 M/mm3 (3.65-5.03) L 05/05/22 06:53 Hgb 9.7 gm/dl (10.1-14.3) L 05/05/22 06:53 Hct 29.9 % (30.3-42.9) L 05/05/22 06:53 MCV 86 fl (79-97) 05/05/22 06:53 MCH 28 pg (28-32) 05/05/22 06:53 MCHC 32 % (30-34) 05/05/22 06:53 RDW 17.5 % (13.2-15.2) H 05/05/22 06:53 Plt Count 210 K/mm3 (140-440) 05/05/22 06:53 Lymph % (Auto) 14.9 % (13.4-35.0) 05/05/22 06:53 [place] % (Auto) 3.6 % (0.0-7.3) 05/05/22 06:53 Eos % (Auto) 0.0 % (0.0-4.3) 05/05/22 06:53 Baso % (Auto) 0.1 % (0.0-1.8) 05/05/22 06:53 Lymph # (Auto) 1.3 K/mm3 (1.2-5.4) 05/05/22 06:53 [place] # (Auto) 0.3 K/mm3 (0.0-0.8) 05/05/22 06:53 Eos # (Auto) 0.0 K/mm3 (0.0-0.4) 05/05/22 06:53 Baso # (Auto) 0.0 K/mm3 (0.0-0.1) 05/05/22 06:53 Add Manual Diff Complete 05/04/22 11:22 Total Counted 100 05/04/22 11:22 Seg Neutrophils % 81.4 % (40.0-70.0) H 05/05/22 06:53 Seg Neuts % (Manual) 76.0 % (40.0-70.0) H 05/04/22 11:22 Band Neutrophils % 5.0 % 05/04/22 11:22 Lymphocytes % (Manual) 11.0 % (13.4-35.0) L 05/04/22 11:22 Reactive Lymphs % (Man) 0 % 05/04/22 11:22 Monocytes % (Manual) 7.0 % (0.0-7.3) 05/04/22 11:22 Eosinophils % (Manual) 1.0 % (0.0-4.3) 05/04/22 11:22 Basophils % (Manual) 0 % (0.0-1.8) 05/04/22 11:22 Metamyelocytes % 0 % 05/04/22 11:22 Myelocytes % 0 % 05/04/22 11:22 Promyelocytes % 0 % 05/04/22 11:22 Blast Cells % 0 % 05/04/22 11:22 Nucleated RBC % Not Reportable 05/04/22 11:22 Seg Neutrophils # 6.9 K/mm3 (1.8-7.7) 05/05/22 06:53 Seg Neutrophils # Man 8.0 K/mm3 (1.8-7.7) H 05/04/22 11:22 Band Neutrophils # 0.5 K/mm3 05/04/22 11:22 Lymphocytes # (Manual) 1.2 K/mm3 (1.2-5.4) 05/04/22 11:22 Abs React Lymphs (Man) 0.0 K/mm3 05/04/22 11:22 Monocytes # (Manual) 0.7 K/mm3 (0.0-0.8) 05/04/22 11:22 Eosinophils # (Manual) 0.1 K/mm3 (0.0-0.4) 05/04/22 11:22 Basophils # (Manual) 0.0 K/mm3 (0.0-0.1) 05/04/22 11:22 Metamyelocytes # 0.0 K/mm3 05/04/22 11:22 Myelocytes # 0.0 K/mm3 05/04/22 11:22 Promyelocytes # 0.0 K/mm3 05/04/22 11:22 Blast Cells # 0.0 K/mm3 05/04/22 11:22 WBC Morphology Not Reportable 05/04/22 11:22 Hypersegmented Neuts Not Reportable 05/04/22 11:22 Hyposegmented Neuts Not Reportable 05/04/22 11:22 Hypogranular Neuts Not Reportable 05/04/22 11:22 Smudge Cells Not Reportable 05/04/22 11:22 Toxic Granulation Not Reportable 05/04/22 11:22 Toxic Vacuolation Not Reportable 05/04/22 11:22 Dohle Bodies Not Reportable 05/04/22 11:22 Pelger-Huet Anomaly Not Reportable 05/04/22 11:22 Emil Rods Not Reportable 05/04/22 11:22 Platelet Estimate Consistent w auto 05/04/22 11:22 Clumped Platelets Not Reportable 05/04/22 11:22 Plt Clumps, EDTA Not Reportable 05/04/22 11:22 Large Platelets Not Reportable 05/04/22 11:22 Giant Platelets Not Reportable 05/04/22 11:22 Platelet Satelliting Not Reportable 05/04/22 11:22 Plt Morphology Comment Not Reportable 05/04/22 11:22 RBC Morphology Not Reportable 05/04/22 11:22 Dimorphic RBCs Not Reportable 05/04/22 11:22 Polychromasia Not Reportable 05/04/22 11:22 Hypochromasia Not Reportable 05/04/22 11:22 Poikilocytosis Not Reportable 05/04/22 11:22 Anisocytosis Not Reportable 05/04/22 11:22 Microcytosis Not Reportable 05/04/22 11:22 Macrocytosis Not Reportable 05/04/22 11:22 Spherocytes Not Reportable 05/04/22 11:22 Pappenheimer Bodies Not Reportable 05/04/22 11:22 Sickle Cells Not Reportable 05/04/22 11:22 Target Cells Not Reportable 05/04/22 11:22 Tear Drop Cells 1+ 05/04/22 11:22 Ovalocytes 1+ 05/04/22 11:22 Helmet Cells Not Reportable 05/04/22 11:22 Romeo-[place] Bodies Not Reportable 05/04/22 11:22 [place] Rings Not Reportable 05/04/22 11:22 Aidan Cells Not Reportable 05/04/22 11:22 Bite Cells Not Reportable 05/04/22 11:22 Crenated Cell Not Reportable 05/04/22 11:22 Elliptocytes Not Reportable 05/04/22 11:22 Acanthocytes (Spur) Not Reportable 05/04/22 11:22 Rouleaux Not Reportable 05/04/22 11:22 Hemoglobin C Crystals Not Reportable 05/04/22 11:22 Schistocytes Not Reportable 05/04/22 11:22 Malaria parasites Not Reportable 05/04/22 11:22 Prashant Bodies Not Reportable 05/04/22 11:22 Hem Pathologist Commnt No 05/04/22 11:22 PT 14.4 Sec. (12.2-14.9) 05/02/22 22:01 INR 0.98 (0.87-1.13) 05/02/22 22:01 D-Dimer 1339.40 ng/mlDDU (0-234) H 05/05/22 07:41 Sodium 144 mmol/L (137-145) 05/05/22 06:53 Potassium 4.4 mmol/L (3.6-5.0) 05/05/22 06:53 Chloride 112.2 mmol/L (98-107) H 05/05/22 06:53 Carbon Dioxide 19 mmol/L (22-30) L 05/05/22 06:53 Anion Gap 17 mmol/L 05/05/22 06:53 BUN 41 mg/dL (7-17) H 05/05/22 06:53 Creatinine 2.6 mg/dL (0.6-1.2) H 05/05/22 06:53 Estimated GFR 22 ml/min 05/05/22 06:53 BUN/Creatinine Ratio 16 % 05/05/22 06:53 Glucose 122 mg/dL (65-100) H 05/05/22 06:53 Lactic Acid 1.50 mmol/L (0.7-2.0) 05/03/22 12:13 Calcium 9.0 mg/dL (8.4-10.2) 05/05/22 06:53 Phosphorus 3.10 mg/dL (2.5-4.5) 05/05/22 06:53 Magnesium 2.50 mg/dL (1.7-2.3) H 05/05/22 06:53 Ferritin 543.3 ng/mL (10.0-200.0) H 05/05/22 07:41 Total Bilirubin 0.30 mg/dL (0.1-1.2) 05/02/22 22:01 AST 42 units/L (5-40) H 05/02/22 22:01 ALT 16 units/L (7-56) 05/02/22 22:01 Alkaline Phosphatase 95 units/L (35-129) 05/02/22 22:01 Lactate Dehydrogenase 327 units/L (91-180) H 05/05/22 07:41 Total Creatine Kinase 1166 units/L (30-135) H 05/02/22 22:01 NT-Pro-B Natriuret Pep 823.3 pg/mL (0-900) 05/03/22 12:13 Total Protein 7.6 g/dL (6.3-8.2) 05/02/22 22:01 Albumin 3.7 g/dL (3.9-5) L 05/02/22 22:01 Albumin/Globulin Ratio 0.9 % 05/02/22 22:01 Procalcitonin 51.09 ng/mL (<0.15) 05/03/22 12:13 PTH Intact 129.9 pg/mL (15-65) H 05/03/22 12:13 Urine Color Yellow (Yellow) 05/02/22 15:00 Urine Turbidity Clear (Clear) 05/02/22 15:00 Urine pH 5.0 (5.0-7.0) 05/02/22 15:00 Ur Specific [place] 1.010 (1.003-1.030) 05/02/22 15:00 Urine Protein <30 mg dl mg/dL (Negative) 05/02/22 15:00 Urine Glucose (UA) Negative mg/dL (Negative) 05/02/22 15:00 Urine Ketones Negative mg/dL (Negative) 05/02/22 15:00 Urine Blood Negative (Negative) 05/02/22 15:00 Urine Nitrite Negative (Negative) 05/02/22 15:00 Urine Bilirubin Negative (Negative) 05/02/22 15:00 Urine Urobilinogen < 2.0 mg/dL (<2.0) 05/02/22 15:00 Ur Leukocyte Esterase Negative (Negative) 05/02/22 15:00 Urine WBC (Auto) 1.0 /HPF (0.0-6.0) 05/02/22 15:00 Urine RBC (Auto) 1.0 /HPF (0.0-6.0) 05/02/22 15:00 U Epithel Cells (Auto) 1.0 /HPF (0-13.0) 05/02/22 15:00 Urine Creatinine 178.0 mg/dL (0.1-20.0) H 05/03/22 15:00 Protein/Creatinin Ratio 0.24 05/03/22 15:00 Urine Total Protein 42 mg/dL (5-11.8) H 05/03/22 15:00 Coronavirus (PCR) Negative (Negative) 05/03/22 15:00 SARS-CoV-2 (PCR) Negative (Negative) 05/05/22 07:14 Microbiology: Microbiology 05/03/22 12:20 Peripheral/Venous Blood Culture - Preliminary NO GROWTH AFTER 24 HOURS 05/03/22 12:13 Peripheral/Venous Blood Culture - Preliminary NO GROWTH AFTER 24 HOURS Gonzalez/IV: Voiding Method Indwelling Catheter Active Medications - Current Medications Current Medications: Generic Name Dose Route Start Last Admin Trade Name Freq PRN Reason Stop Dose Admin Acetaminophen 650 mg 05/02/22 23:57 05/04/22 02:31 Acetaminophen 325 Mg Tab PO 650 mg Q4H PRN Administration Pain MILD(1-3)/Fever >100.5/PALMA Albuterol 2.5 mg 05/02/22 23:57 05/04/22 03:33 Albuterol 2.5 Mg/3 Ml Nebu IH 2.5 mg Q3HRT PRN Administration Shortness Of Breath Albuterol/Ipratropium 1 ampul 05/03/22 20:00 05/05/22 08:53 Ipratropium/Albuterol Sulfate 3 Ml Ampul.Neb IH 1 ampul TIDRT LUCIO Administration Amlodipine Besylate 5 mg 05/03/22 10:00 05/04/22 10:01 Amlodipine 5 Mg Tab PO 5 mg DAILY LUCIO Administration Aspirin 81 mg 05/03/22 10:00 05/04/22 10:00 Aspirin 81 Mg Tab Chew PO 81 mg QDAY LUCIO Administration Benztropine Mesylate 1 mg 05/03/22 08:00 05/04/22 20:38 Benztropine 1 Mg Tab PO 1 mg TID LUCIO Administration Carvedilol 12.5 mg 05/03/22 10:00 05/04/22 21:33 Carvedilol 12.5 Mg Tab PO 12.5 mg BID LUCIO Administration Dexamethasone 8 mg 05/04/22 14:00 05/04/22 14:54 Dexamethasone 4 Mg/Ml Vial IV 05/13/22 10:01 8 mg DAILY LUCIO Administration Famotidine 10 mg 05/03/22 10:00 05/04/22 21:32 Famotidine 10 Mg Tab PO 10 mg BID LUCIO Administration Hydralazine HCl 50 mg 05/03/22 10:00 05/04/22 21:32 Hydralazine 25 Mg Tab PO 50 mg BID LUCIO Administration Sodium Chloride 1,000 mls @ 75 mls/hr 05/03/22 09:30 05/04/22 05:49 Nacl 0.9% 1000 Ml IV 75 mls/hr DIRECT LUCIO Administration Azithromycin 500 mg in 250 mls @ 250 mls/hr 05/04/22 14:00 05/04/22 14:52 Zithromax/Ns IV 250 mls/hr Q24H LUCIO Administration Ceftriaxone Sodium 1 gm in 50 mls @ 100 mls/hr 05/04/22 14:00 05/04/22 14:52 Rocephin/Ns 1 Gm/50 Ml IV 05/09/22 13:59 100 mls/hr Q24H LUCIO Administration Protocol Isosorbide Mononitrate 30 mg 05/03/22 10:00 05/04/22 10:00 Isosorbide Mononitrate Er 30 Mg Tab PO 30 mg DAILY LUCIO Administration Loperamide HCl 2 mg 05/05/22 12:00 Loperamide 2 Mg Cap PO Q6H LUCIO Ondansetron HCl 4 mg 05/02/22 23:57 Ondansetron 4 Mg/2 Ml Inj IV Q8H PRN Nausea And Vomiting Ondansetron HCl 4 mg 05/04/22 21:50 05/04/22 22:00 Ondansetron 4 Mg Odt Tab PO 4 mg Q8H PRN Administration Nausea And Vomiting Paroxetine HCl 40 mg 05/05/22 10:00 Paroxetine 20 Mg Tab PO DAILY LUCIO Pramipexole Dihydrochloride 0.5 mg 05/05/22 10:00 Pramipexole 0.5 Mg Tab PO DAILY LUCIO Pseudoephedrine/Acetam/Chlorphenir 15 ml 05/05/22 10:00 Guaifenesin/Codeine 100-10mg Oral Liqd 5 Ml PO Q6H LUCIO Sodium Chloride 10 ml 05/03/22 10:00 05/04/22 21:33 Sodium Chloride 0.9% 10 Ml Flush Syringe IV 10 ml BID LUCIO Administration Sodium Chloride 10 ml 05/02/22 23:57 Sodium Chloride 0.9% 10 Ml Flush Syringe IV PRN PRN LINE FLUSH Zolpidem Tartrate 5 mg 05/05/22 21:00 Zolpidem 5 Mg Tab PO QHS PRN Sleep
[2022-05-05 09:37] LABS: C-Reactive Protein 26.3 mg/dL (0.00-1.30)
[2022-05-05] MEDS: guaiFENesin/CODEINE 100-10MG ORAL LIQD 5 ML PO SCH ×3 (09:41→21:30)
[2022-05-05] MEDS: dexAMETHasone 4 MG/ML VIAL IV SCH (09:41)
[2022-05-05] MEDS: FAMOTIDINE 10 MG TAB PO SCH ×2 (09:41→21:30)
[2022-05-05] MEDS: amLODIPine 5 MG TAB PO SCH (09:41)
[2022-05-05] MEDS: carvediloL 12.5 MG TAB PO SCH ×2 (09:41→21:31)
[2022-05-05] MEDS: ASPIRIN 81 MG TAB CHEW PO SCH (09:41)
[2022-05-05] MEDS: hydrALAZINE 25 MG TAB PO SCH ×2 (09:42→21:31)
[2022-05-05] MEDS: BENZTROPINE 1 MG TAB PO SCH ×3 (09:42→21:31)
[2022-05-05] MEDS: PARoxetine 20 MG TAB PO SCH (09:43)
[2022-05-05] MEDS: PRAMIPEXOLE 0.5 MG TAB PO SCH (09:43)
[2022-05-05] MEDS: cefTRIAXone/NS 1 GM/50 ML 1 GM/50 ML BAG IV SCH (13:59)
[2022-05-05] MEDS: AZITHROMYCIN/NS 500 MG/250 ML 500 MG/250 ML BAG IV SCH (14:00)
[2022-05-05] MEDS: ONDANSETRON 4 MG/2 ML INJ IV PRN (14:03)
--- NOTE | 2022-05-05 16:21 | Progress Note ---
Assessment and Plan # Acute Kidney Disease: suspect underlying CKD in setting of solitary kidney, cardiac disease. PEYTON likely due to rhabdomyolysis s/p fall vs tubular injury in setting of acute illness, creatinine improving 6.2->3.9->2.6 - off isotonic fluid currently, use prn, encourage po hydration - renal ultrasound reviewed- note solitary kidney s/p surgery, no acute issues - serologies pending; urinalysis, UP/C bland so less concern for GN involvement - PTH 129 consistent with secondary hyperparathyroidism in CKD, Ca/P WNL - avoid nephrotoxins - agree to hold diuretic, MIA/ARB for now - renally dose medications - strict Is/Os - no immediate need for renal replacement therapy pending course # Mild Rhabdomyolysis: s/p IVF # Lactic Acidosis, Possible Pneumonia: has history of CHF/cardiomyopathy, COVID test negative # Dementia: per primary # HTN: BP stable on current regimen, avoid hypotension Subjective Date of service: 05/05/22 Interval history: No acute issues noted, resting in bed Objective - Exam Narrative Exam: General appearance: Present: no acute distress, well-nourished - EENT Eyes: Present: PERRL ENT: hearing intact, clear oral mucosa - Neck Neck: Present: supple, normal ROM - Respiratory Respiratory effort: normal Respiratory: bilateral: CTA - Cardiovascular Heart Sounds: Present: S1 & S2. - Extremities Extremities: pulses symmetrical, No edema Peripheral Pulses: within normal limits - Abdominal General gastrointestinal: Present: soft, non-distended, normal bowel sounds Female genitourinary: Present: normal - Integumentary Integumentary: Present: clear, warm, dry - Musculoskeletal Musculoskeletal: gait normal, strength equal bilaterally - Psychiatric Psychiatric: appropriate mood/affect, intact judgment & insight - Neurologic Neurologic: CNII-XII intact, moves all extremities - Vital Signs Vital signs: Vital Signs - 12hr 05/05/22 05/05/22 05/05/22 08:53 09:48 15:57 Temperature 98.1 F Pulse Rate 70 Pulse Rate [ 73 Anterior Bilateral Throughout] Respiratory 20 Rate Respiratory 18 Rate [Anterior Bilateral Throughout] Blood Pressure 145/79 139/68 O2 Sat by Pulse 98 100 Oximetry - Lab 05/05/22 06:53 05/05/22 06:53 Most recent lab results Calcium 9.0 mg/dL (8.4-10.2) 05/05/22 06:53 Phosphorus 3.10 mg/dL (2.5-4.5) 05/05/22 06:53 Magnesium 2.50 mg/dL (1.7-2.3) H 05/05/22 06:53 Urine Creatinine 178.0 mg/dL (0.1-20.0) H 05/03/22 15:00 Urine Total Protein 42 mg/dL (5-11.8) H 05/03/22 15:00 Medications & Allergies - Medications Allergies/Adverse Reactions: Allergies lisinopril Allergy (Verified 05/02/22 18:21) Swelling morphine Allergy (Verified 05/02/22 18:21) Swelling Home Medications: Home Medications Medication Instructions Recorded Confirmed Last Taken Type Ondansetron [Zofran Odt] 8 mg PO BID 05/16/16 05/03/22 Unknown History Hydralazine HCl [Apresoline TAB] 50 mg PO BID 10/30/16 05/03/22 Unknown History HYDROcodone/Acetaminop 7.5-325 7.5 mg PO Q6H 11/01/16 05/03/22 Unknown History [[place] 7.5-325 mg per 15 ML] FLUoxetine HCL [Prozac] 20 mg PO DAILY 07/21/19 05/03/22 Unknown History Aspirin [Aspirin BABY CHEW TAB] 81 mg PO QDAY #30 tab.chew 07/23/19 05/03/22 Unknown Rx Benztropine [Cogentin] 1 mg PO TID #90 07/23/19 05/03/22 Unknown Rx Gabapentin 100 mg PO Q8HR #90 cap 07/23/19 05/03/22 Unknown Rx Ipratropium/Albuter (Nf) 2 puff IH QID #1 inha 07/23/19 05/03/22 Unknown Rx [Combivent (Nf)] Isosorbide Dinitrate [Isosorbide 30 mg PO DAILY #30 07/23/19 05/03/22 Unknown Rx Dinitrate ER] Lasix TAB 40 mg PO DAILY #30 07/23/19 05/03/22 Unknown Rx Losartan [Cozaar] 100 mg PO DAILY #30 tablet 07/23/19 05/03/22 Unknown Rx Mirtazapine [Remeron 15mg TAB] 15 mg PO PRN #30 07/23/19 05/03/22 Unknown Rx PARoxetine [Paxil] 40 mg PO DAILY #30 tablet 07/23/19 05/03/22 Unknown Rx Pantoprazole [Protonix TAB] 40 mg PO DAILY #30 tablet 07/23/19 05/03/22 Unknown Rx Potassium Chloride [K-Dur] 20 meq PO QDAY #30 07/23/19 05/03/22 Unknown Rx Pramipexole [Mirapex] 0.5 mg PO DAILY #30 tablet 07/23/19 05/03/22 Unknown Rx Zolpidem [Ambien] 5 mg PO QHS PRN #30 tablet 07/23/19 05/03/22 Unknown Rx amLODIPine 5 mg PO DAILY #30 07/23/19 05/03/22 Unknown Rx carvediloL [Coreg] 12.5 mg PO BID #60 07/23/19 05/03/22 Unknown Rx oxyCODONE /ACETAMINOPHEN [Percocet 2 tab PO Q6H PRN #15 tablet 07/23/19 05/03/22 Unknown Rx 5/325 mg] Active Medications: Generic Name Dose Route Start Last Admin Trade Name Freq PRN Reason Stop Dose Admin Acetaminophen 650 mg 05/02/22 23:57 05/04/22 02:31 Acetaminophen 325 Mg Tab PO 650 mg Q4H PRN Administration Pain MILD(1-3)/Fever >100.5/PALMA Albuterol 2.5 mg 05/02/22 23:57 05/04/22 03:33 Albuterol 2.5 Mg/3 Ml Nebu IH 2.5 mg Q3HRT PRN Administration Shortness Of Breath Albuterol/Ipratropium 1 ampul 05/03/22 20:00 05/05/22 13:25 Ipratropium/Albuterol Sulfate 3 Ml Ampul.Neb IH 1 ampul TIDRT LUCIO Administration Amlodipine Besylate 5 mg 05/03/22 10:00 05/05/22 09:41 Amlodipine 5 Mg Tab PO 5 mg DAILY LUCIO Administration Aspirin 81 mg 05/03/22 10:00 05/05/22 09:41 Aspirin 81 Mg Tab Chew PO 81 mg QDAY LUCIO Administration Benztropine Mesylate 1 mg 05/03/22 08:00 05/05/22 14:00 Benztropine 1 Mg Tab PO 1 mg TID LUCIO Administration Carvedilol 12.5 mg 05/03/22 10:00 05/05/22 09:41 Carvedilol 12.5 Mg Tab PO 12.5 mg BID LUCIO Administration Dexamethasone 8 mg 05/04/22 14:00 05/05/22 09:41 Dexamethasone 4 Mg/Ml Vial IV 05/13/22 10:01 8 mg DAILY LUCIO Administration Famotidine 10 mg 05/03/22 10:00 05/05/22 09:41 Famotidine 10 Mg Tab PO 10 mg BID LUCIO Administration Hydralazine HCl 50 mg 05/03/22 10:00 05/05/22 09:42 Hydralazine 25 Mg Tab PO 50 mg BID LUCIO Administration Sodium Chloride 1,000 mls @ 75 mls/hr 05/03/22 09:30 05/04/22 05:49 Nacl 0.9% 1000 Ml IV 75 mls/hr DIRECT LUCIO Administration Azithromycin 500 mg in 250 mls @ 250 mls/hr 05/04/22 14:00 05/05/22 14:00 Zithromax/Ns IV 250 mls/hr Q24H LUCIO Administration Ceftriaxone Sodium 1 gm in 50 mls @ 100 mls/hr 05/04/22 14:00 05/05/22 13:59 Rocephin/Ns 1 Gm/50 Ml IV 05/09/22 13:59 100 mls/hr Q24H LUCIO Administration Protocol Isosorbide Mononitrate 30 mg 05/03/22 10:00 05/05/22 09:41 Isosorbide Mononitrate Er 30 Mg Tab PO 30 mg DAILY LUCIO Administration Loperamide HCl 2 mg 05/05/22 12:00 05/05/22 14:00 Loperamide 2 Mg Cap PO 2 mg Q6H LUCIO Administration Ondansetron HCl 4 mg 05/02/22 23:57 05/05/22 14:03 Ondansetron 4 Mg/2 Ml Inj IV 4 mg Q8H PRN Administration Nausea And Vomiting Ondansetron HCl 4 mg 05/04/22 21:50 05/04/22 22:00 Ondansetron 4 Mg Odt Tab PO 4 mg Q8H PRN Administration Nausea And Vomiting Paroxetine HCl 40 mg 05/05/22 10:00 05/05/22 09:43 Paroxetine 20 Mg Tab PO 40 mg DAILY LUCIO Administration Pramipexole Dihydrochloride 0.5 mg 05/05/22 10:00 05/05/22 09:43 Pramipexole 0.5 Mg Tab PO 0.5 mg DAILY LUCIO Administration Pseudoephedrine/Acetam/Chlorphenir 15 ml 05/05/22 10:00 05/05/22 15:45 Guaifenesin/Codeine 100-10mg Oral Liqd 5 Ml PO 15 ml Q6H LUCIO Administration Sodium Chloride 10 ml 05/03/22 10:00 05/05/22 09:44 Sodium Chloride 0.9% 10 Ml Flush Syringe IV 10 ml BID LUCIO Administration Sodium Chloride 10 ml 05/02/22 23:57 Sodium Chloride 0.9% 10 Ml Flush Syringe IV PRN PRN LINE FLUSH Zolpidem Tartrate 5 mg 05/05/22 21:00 Zolpidem 5 Mg Tab PO QHS PRN Sleep
--- NOTE | 2022-05-05 17:22 | Vascular Lab Report ---
DUPLEX DOPPLER LOWER EXTREMITY VEINS, BILATERAL INDICATION / CLINICAL INFORMATION: Evaluate for possible DVT. History of pneumonia/suspected COVID. TECHNIQUE: Duplex doppler imaging was performed through the veins of both lower extremities using leon ous compression and other maneuvers. COMPARISON: None available. FINDINGS: RIGHT COMMON FEMORAL VEIN: Negative. RIGHT FEMORAL VEIN: Negative. RIGHT POPLITEAL VEIN: Negative. RIGHT CALF VEINS: Negative. LEFT COMMON FEMORAL VEIN: Negative. LEFT FEMORAL VEIN: Negative. LEFT POPLITEAL VEIN: Negative. LEFT CALF VEINS: Negative. ADDITIONAL FINDINGS: None. IMPRESSION: 1. No sonographic evidence for DVT in either lower extremity. Signer Name: Julito Christine MD Signed: 05/05/2022 5:18 PM Workstation Name: [id number]
[2022-05-05] MEDS: ACETAMINOPHEN 325 MG TAB PO PRN (21:30)
[2022-05-05] MEDS: ZOLPIDEM 5 MG TAB PO PRN (21:31)
[2022-05-05] MEDS: ONDANSETRON 4 MG ODT TAB PO PRN (21:31)
[2022-05-06] MEDS: LOPERAMIDE 2 MG CAP PO SCH ×5 (00:46→23:48)
[2022-05-06] MEDS: guaiFENesin/CODEINE 100-10MG ORAL LIQD 5 ML PO SCH ×4 (05:42→21:10)
[2022-05-06 06:50] LABS: Hematocrit 28.3 % (30.3-42.9); Hemoglobin 9.6 gm/dl (10.1-14.3); Mean Corpuscular HGB Conc 34 % (30-34); Mean Corpuscular Volume 86 fl (79-97); Platelet Count 241 K/mm3 (140-440); Red Blood Count 3.31 M/mm3 (3.65-5.03); Red Cell Distribution Width 17.5 % (13.2-15.2)
[2022-05-06 07:25] LABS: Calcium 9.1 mg/dL (8.4-10.2)
[2022-05-06] MEDS: BENZTROPINE 1 MG TAB PO SCH ×3 (08:00→20:58)
[2022-05-06] MEDS: IPRATROPIUM/ALBUTEROL SULFATE 3 ML AMPUL.NEB IH SCH ×3 (08:50→19:36)
[2022-05-06] MEDS: amLODIPine 5 MG TAB PO SCH (10:15)
[2022-05-06] MEDS: dexAMETHasone 4 MG/ML VIAL IV SCH (10:15)
[2022-05-06] MEDS: ASPIRIN 81 MG TAB CHEW PO SCH (10:16)
[2022-05-06] MEDS: FAMOTIDINE 10 MG TAB PO SCH ×2 (10:16→21:07)
[2022-05-06] MEDS: carvediloL 12.5 MG TAB PO SCH ×2 (10:16→21:07)
[2022-05-06] MEDS: hydrALAZINE 25 MG TAB PO SCH ×2 (10:16→21:06)
[2022-05-06] MEDS: PRAMIPEXOLE 0.5 MG TAB PO SCH (10:17)
[2022-05-06] MEDS: PARoxetine 20 MG TAB PO SCH (10:17)
[2022-05-06] MEDS: ONDANSETRON 4 MG ODT TAB PO PRN ×2 (10:33→21:27)
[2022-05-06 10:37] LABS: Anisocytosis 1+; Basophils % (Manual) 0 % (0.0-1.8); Eosinophils % (Manual) 0 % (0.0-4.3); Ovalocytes Few; Platelet Estimate Consistent w Auto; Poikilocytosis 1+; Tear Drop Cells Few; Total Cells Counted 100
[2022-05-06] MEDS: cefTRIAXone/NS 1 GM/50 ML 1 GM/50 ML BAG IV SCH (13:54)
[2022-05-06] MEDS: AZITHROMYCIN/NS 500 MG/250 ML 500 MG/250 ML BAG IV SCH (13:55)
--- NOTE | 2022-05-06 14:29 | Progress Note ---
Assessment and Plan # Acute Kidney Disease: suspect underlying CKD in setting of solitary kidney, cardiac disease. 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, Ca/P WNL - avoid nephrotoxins - agree to hold diuretic, MIA/ARB for now - renally dose medications - strict Is/Os - no immediate need for renal replacement therapy # Mild Rhabdomyolysis: s/p IVF # Lactic Acidosis, Possible Pneumonia: has history of CHF/cardiomyopathy, COVID test negative # Dementia: per primary # HTN: BP stable on current regimen, avoid hypotension Subjective Date of service: 05/06/22 Interval history: No acute issues noted, resting in bed Objective - Exam Narrative Exam: General appearance: Present: no acute distress, well-nourished - EENT Eyes: Present: PERRL ENT: hearing intact, clear oral mucosa - Neck Neck: Present: supple, normal ROM - Respiratory Respiratory effort: normal Respiratory: bilateral: CTA - Cardiovascular Heart Sounds: Present: S1 & S2. - Extremities Extremities: pulses symmetrical, No edema Peripheral Pulses: within normal limits - Abdominal General gastrointestinal: Present: soft, non-distended, normal bowel sounds Female genitourinary: Present: normal - Integumentary Integumentary: Present: clear, warm, dry - Musculoskeletal Musculoskeletal: gait normal, strength equal bilaterally - Psychiatric Psychiatric: appropriate mood/affect, intact judgment & insight - Neurologic Neurologic: CNII-XII intact, moves all extremities - Vital Signs Vital signs: Vital Signs - 12hr 05/06/22 05/06/22 05/06/22 05:22 10:00 13:42 Temperature 97.8 F Pulse Rate 75 Pulse Rate [ Anterior Bilateral Throughout] Respiratory 20 Rate Respiratory Rate [Anterior Bilateral Throughout] Blood Pressure 124/72 [Left] O2 Sat by Pulse 96 97 96 Oximetry 05/06/22 13:43 Temperature Pulse Rate Pulse Rate [ 64 Anterior Bilateral Throughout] Respiratory Rate Respiratory 18 Rate [Anterior Bilateral Throughout] Blood Pressure [Left] O2 Sat by Pulse Oximetry - Lab 05/06/22 06:25 05/06/22 06:25 Most recent lab results Calcium 9.1 mg/dL (8.4-10.2) 05/06/22 06:25 Phosphorus 3.10 mg/dL (2.5-4.5) 05/05/22 06:53 Magnesium 2.50 mg/dL (1.7-2.3) H 05/05/22 06:53 Urine Creatinine 178.0 mg/dL (0.1-20.0) H 05/03/22 15:00 Urine Total Protein 42 mg/dL (5-11.8) H 05/03/22 15:00 Medications & Allergies - Medications Allergies/Adverse Reactions: Allergies lisinopril Allergy (Verified 05/02/22 18:21) Swelling morphine Allergy (Verified 05/02/22 18:21) Swelling Home Medications: Home Medications Medication Instructions Recorded Confirmed Last Taken Type Ondansetron [Zofran Odt] 8 mg PO BID 05/16/16 05/03/22 Unknown History Hydralazine HCl [Apresoline TAB] 50 mg PO BID 10/30/16 05/03/22 Unknown History HYDROcodone/Acetaminop 7.5-325 7.5 mg PO Q6H 11/01/16 05/03/22 Unknown History [[place] 7.5-325 mg per 15 ML] FLUoxetine HCL [Prozac] 20 mg PO DAILY 07/21/19 05/03/22 Unknown History Aspirin [Aspirin BABY CHEW TAB] 81 mg PO QDAY #30 tab.chew 07/23/19 05/03/22 Unknown Rx Benztropine [Cogentin] 1 mg PO TID #90 07/23/19 05/03/22 Unknown Rx Gabapentin 100 mg PO Q8HR #90 cap 07/23/19 05/03/22 Unknown Rx Ipratropium/Albuter (Nf) 2 puff IH QID #1 inha 07/23/19 05/03/22 Unknown Rx [Combivent (Nf)] Isosorbide Dinitrate [Isosorbide 30 mg PO DAILY #30 07/23/19 05/03/22 Unknown Rx Dinitrate ER] Lasix TAB 40 mg PO DAILY #30 07/23/19 05/03/22 Unknown Rx Losartan [Cozaar] 100 mg PO DAILY #30 tablet 07/23/19 05/03/22 Unknown Rx Mirtazapine [Remeron 15mg TAB] 15 mg PO PRN #30 07/23/19 05/03/22 Unknown Rx PARoxetine [Paxil] 40 mg PO DAILY #30 tablet 07/23/19 05/03/22 Unknown Rx Pantoprazole [Protonix TAB] 40 mg PO DAILY #30 tablet 07/23/19 05/03/22 Unknown Rx Potassium Chloride [K-Dur] 20 meq PO QDAY #30 07/23/19 05/03/22 Unknown Rx Pramipexole [Mirapex] 0.5 mg PO DAILY #30 tablet 07/23/19 05/03/22 Unknown Rx Zolpidem [Ambien] 5 mg PO QHS PRN #30 tablet 07/23/19 05/03/22 Unknown Rx amLODIPine 5 mg PO DAILY #30 07/23/19 05/03/22 Unknown Rx carvediloL [Coreg] 12.5 mg PO BID #60 07/23/19 05/03/22 Unknown Rx oxyCODONE /ACETAMINOPHEN [Percocet 2 tab PO Q6H PRN #15 tablet 07/23/19 05/03/22 Unknown Rx 5/325 mg] Active Medications: Generic Name Dose Route Start Last Admin Trade Name [place]q PRN Reason Stop Dose Admin Acetaminophen 650 mg 05/02/22 23:57 05/05/22 21:30 Acetaminophen 325 Mg Tab PO 650 mg Q4H PRN Administration Pain MILD(1-3)/Fever >100.5/PALMA Albuterol 2.5 mg 05/02/22 23:57 05/04/22 03:33 Albuterol 2.5 Mg/3 Ml Nebu IH 2.5 mg Q3HRT PRN Administration Shortness Of Breath Albuterol/Ipratropium 1 ampul 05/03/22 20:00 05/06/22 13:43 Ipratropium/Albuterol Sulfate 3 Ml Ampul.Neb IH 1 ampul TIDRT LUCIO Administration Amlodipine Besylate 5 mg 05/03/22 10:00 05/06/22 10:15 Amlodipine 5 Mg Tab PO 5 mg DAILY LUCIO Administration Aspirin 81 mg 05/03/22 10:00 05/06/22 10:16 Aspirin 81 Mg Tab Chew PO 81 mg QDAY LUCIO Administration Benztropine Mesylate 1 mg 05/03/22 08:00 05/06/22 08:00 Benztropine 1 Mg Tab PO 1 mg TID LUCIO Administration Carvedilol 12.5 mg 05/03/22 10:00 05/06/22 10:16 Carvedilol 12.5 Mg Tab PO 12.5 mg BID LUCIO Administration Dexamethasone 8 mg 05/04/22 14:00 05/06/22 10:15 Dexamethasone 4 Mg/Ml Vial IV 05/13/22 10:01 8 mg DAILY LUCIO Administration Famotidine 10 mg 05/03/22 10:00 05/06/22 10:16 Famotidine 10 Mg Tab PO 10 mg BID LUCIO Administration Hydralazine HCl 50 mg 05/03/22 10:00 05/06/22 10:16 Hydralazine 25 Mg Tab PO 50 mg BID LUCIO Administration Sodium Chloride 1,000 mls @ 75 mls/hr 05/03/22 09:30 05/04/22 05:49 Nacl 0.9% 1000 Ml IV 75 mls/hr DIRECT LUCIO Administration Azithromycin 500 mg in 250 mls @ 250 mls/hr 05/04/22 14:00 05/06/22 13:55 Zithromax/Ns IV 250 mls/hr Q24H LUCIO Administration Ceftriaxone Sodium 1 gm in 50 mls @ 100 mls/hr 05/04/22 14:00 05/06/22 13:54 Rocephin/Ns 1 Gm/50 Ml IV 05/09/22 13:59 100 mls/hr Q24H LUCIO Administration Protocol Isosorbide Mononitrate 30 mg 05/03/22 10:00 05/06/22 10:15 Isosorbide Mononitrate Er 30 Mg Tab PO 30 mg DAILY LUCIO Administration Loperamide HCl 2 mg 05/05/22 12:00 05/06/22 12:00 Loperamide 2 Mg Cap PO 2 mg Q6H LUCIO Administration Ondansetron HCl 4 mg 05/02/22 23:57 05/05/22 14:03 Ondansetron 4 Mg/2 Ml Inj IV 4 mg Q8H PRN Administration Nausea And Vomiting Ondansetron HCl 4 mg 05/04/22 21:50 05/06/22 10:33 Ondansetron 4 Mg Odt Tab PO 4 mg Q8H PRN Administration Nausea And Vomiting Paroxetine HCl 40 mg 05/05/22 10:00 05/06/22 10:17 Paroxetine 20 Mg Tab PO 40 mg DAILY LUCIO Administration Pramipexole Dihydrochloride 0.5 mg 05/05/22 10:00 05/06/22 10:17 Pramipexole 0.5 Mg Tab PO 0.5 mg DAILY LUCIO Administration Pseudoephedrine/Acetam/Chlorphenir 15 ml 05/05/22 10:00 05/06/22 10:21 Guaifenesin/Codeine 100-10mg Oral Liqd 5 Ml PO 15 ml Q6H LUCIO Administration Sodium Chloride 10 ml 05/03/22 10:00 05/06/22 10:15 Sodium Chloride 0.9% 10 Ml Flush Syringe IV 10 ml BID LUCIO Administration Sodium Chloride 10 ml 05/02/22 23:57 Sodium Chloride 0.9% 10 Ml Flush Syringe IV PRN PRN LINE FLUSH Zolpidem Tartrate 5 mg 05/05/22 21:00 05/05/22 21:31 Zolpidem 5 Mg Tab PO 5 mg QHS PRN Administration Sleep
[2022-05-06] MEDS: ACETAMINOPHEN 325 MG TAB PO PRN ×2 (16:50→23:48)
[2022-05-06] MEDS: ZOLPIDEM 5 MG TAB PO PRN (23:48)
[2022-05-07] MEDS: guaiFENesin/CODEINE 100-10MG ORAL LIQD 5 ML PO SCH ×4 (04:51→21:17)
[2022-05-07] MEDS: LOPERAMIDE 2 MG CAP PO SCH ×4 (05:29→21:17)
--- NOTE | 2022-05-07 07:38 | Progress Note ---
Assessment and Plan Assessment and plan: Patient was evaluated this morning, she was found to be hemodynamically stable. Patient did become febrile early in the morning to a temp of 101.1. The patient will continue further work-up due to concerns for sepsis in the setting of acute respiratory failure. #Acute hypoxic respiratory failure #Possible COVID-19 pneumonia- ruled out #Pneumonia secondary to gram-negative or atypical bacteria #Lactic acidosis-resolved Lactic acid 3.0-->1.5 - etiology: pneumonia secondary to gram-negative or atypical bacteria. - baseline oxygen requirements: Room air - supplemental oxygen: 3 L nasal cannula - Continue protocol: continue pulse oximetry, wean oxygen as tolerated, airborne and droplet precautions. Ordering patient to sit in the chair. Unremarkable BNP and procalcitonin. Chest x-ray revealing nonspecific bilateral pulmonary opacities that could represent atelectasis versus edema versus pneumonia. Elevated inflammation markers that would normally indicate possible coronavirus infection; however, coronavirus PCR unremarkable. D-dimer is 1339, ferritin 543, LDH 327, and pending CRP. Continue azithromycin 500 mg daily and Rocephin 1 g daily (started on 05/04/2022). Continue IV dexamethasone 8 mg daily. Continue Robitussin every 6 hours. - continue to monitor #PEYTON on CKD stage 4improving Creatinine 6.2-->3.9--> 2.6-->2.2 (baseline currently unknown) Renally dose meds and avoid nephrotoxic drugs. Nephrology consulted; appreciate recs. Renal ultrasound only remarkable for right nephrectomy. #Elevated D-dimer D-dimer 1339 Unremarkable bilateral venous Dopplers for DVT. Continue to monitor. #Diarrhea Continue scheduled loperamide 2 mg every 4 hours. - Low clinical suspicion for C. diff given the lack of antibiotics prior to admission. Ordering HIV to rule out immunocompromised status. #Rhabdomyolysisruled out CK 1166. Discontinuing aggressive IV fluid resuscitation due to possible volume overload. #Chronic systolic heart failure #Cardiomyopathy Continue goal-directed therapy. Unremarkable BMP. #Dementia Continue to orient the patient, open blinds during the daylight, and turn off TV and lights at 10 PM #Mild protein caloric malnutrition Albumin 3.7 Continue dietary supplementation. #Advanced care planning -Disease education conducted, care plan discussed, diagnoses discussed, prognosis discussed, and patient acknowledges understanding with care plan -Time: +30 min Disposition Plan: Continue medical management Total Time Spent with Patient (Minutes): 45 min History Interval history: No acute events overnight. Hospitalist Physical - Constitutional Vitals: Temp Pulse Resp BP Pulse Ox 97.8 F 65 18 122/55 94 05/07/22 05:32 05/07/22 05:32 05/07/22 05:32 05/07/22 05:32 05/07/22 05:32 General appearance: Present: no acute distress, well-nourished - EENT Eyes: Present: PERRL, EOM intact ENT: hearing intact, clear oral mucosa, dentition normal - Neck Neck: Present: supple, normal ROM - Respiratory Respiratory effort: normal Respiratory: bilateral: diminished (on 3L nasal cannula) - Cardiovascular Rhythm: regular Heart Sounds: Present: S1 & S2 - Extremities Extremities: no ischemia, pulses intact, pulses symmetrical, No edema, normal temperature, normal color Peripheral Pulses: within normal limits - Abdominal General gastrointestinal: soft, non-tender, non-distended, normal bowel sounds - Integumentary Integumentary: Present: clear, warm, dry - Psychiatric Psychiatric: appropriate mood/affect, intact judgment & insight, memory intact, cooperative - Neurologic Neurologic: CNII-XII intact, moves all extremities - Allied Health Allied health notes reviewed: nursing Results - Labs CBC & Chem 7: 05/07/22 06:10 05/07/22 06:10 Labs: Laboratory Last Values WBC 10.6 K/mm3 (4.5-11.0) 05/06/22 06:25 RBC 3.31 M/mm3 (3.65-5.03) L 05/06/22 06:25 Hgb 9.6 gm/dl (10.1-14.3) L 05/06/22 06:25 Hct 28.3 % (30.3-42.9) L 05/06/22 06:25 MCV 86 fl (79-97) 05/06/22 06:25 MCH 29 pg (28-32) 05/06/22 06:25 MCHC 34 % (30-34) 05/06/22 06:25 RDW 17.5 % (13.2-15.2) H 05/06/22 06:25 Plt Count 241 K/mm3 (140-440) 05/06/22 06:25 Lymph % (Auto) 14.9 % (13.4-35.0) 05/05/22 06:53 [place] % (Auto) 3.6 % (0.0-7.3) 05/05/22 06:53 Eos % (Auto) 0.0 % (0.0-4.3) 05/05/22 06:53 Baso % (Auto) 0.1 % (0.0-1.8) 05/05/22 06:53 Lymph # (Auto) 1.3 K/mm3 (1.2-5.4) 05/05/22 06:53 [place] # (Auto) 0.3 K/mm3 (0.0-0.8) 05/05/22 06:53 Eos # (Auto) 0.0 K/mm3 (0.0-0.4) 05/05/22 06:53 Baso # (Auto) 0.0 K/mm3 (0.0-0.1) 05/05/22 06:53 Add Manual Diff Complete 05/06/22 06:25 Total Counted 100 05/06/22 06:25 Seg Neutrophils % 81.4 % (40.0-70.0) H 05/05/22 06:53 Seg Neuts % (Manual) 87.0 % (40.0-70.0) H 05/06/22 06:25 Band Neutrophils % 0 % 05/06/22 06:25 Lymphocytes % (Manual) 9.0 % (13.4-35.0) L 05/06/22 06:25 Reactive Lymphs % (Man) 0 % 05/06/22 06:25 Monocytes % (Manual) 4.0 % (0.0-7.3) 05/06/22 06:25 Eosinophils % (Manual) 0 % (0.0-4.3) 05/06/22 06:25 Basophils % (Manual) 0 % (0.0-1.8) 05/06/22 06:25 Metamyelocytes % 0 % 05/06/22 06:25 Myelocytes % 0 % 05/06/22 06:25 Promyelocytes % 0 % 05/06/22 06:25 Blast Cells % 0 % 05/06/22 06:25 Nucleated RBC % Not Reportable 05/06/22 06:25 Seg Neutrophils # 6.9 K/mm3 (1.8-7.7) 05/05/22 06:53 Seg Neutrophils # Man 9.2 K/mm3 (1.8-7.7) H 05/06/22 06:25 Band Neutrophils # 0.0 K/mm3 05/06/22 06:25 Lymphocytes # (Manual) 1.0 K/mm3 (1.2-5.4) L 05/06/22 06:25 Abs React Lymphs (Man) 0.0 K/mm3 05/06/22 06:25 Monocytes # (Manual) 0.4 K/mm3 (0.0-0.8) 05/06/22 06:25 Eosinophils # (Manual) 0.0 K/mm3 (0.0-0.4) 05/06/22 06:25 Basophils # (Manual) 0.0 K/mm3 (0.0-0.1) 05/06/22 06:25 Metamyelocytes # 0.0 K/mm3 05/06/22 06:25 Myelocytes # 0.0 K/mm3 05/06/22 06:25 Promyelocytes # 0.0 K/mm3 05/06/22 06:25 Blast Cells # 0.0 K/mm3 05/06/22 06:25 WBC Morphology Not Reportable 05/06/22 06:25 Hypersegmented Neuts Not Reportable 05/06/22 06:25 Hyposegmented Neuts Not Reportable 05/06/22 06:25 Hypogranular Neuts Not Reportable 05/06/22 06:25 Smudge Cells Not Reportable 05/06/22 06:25 Toxic Granulation Not Reportable 05/06/22 06:25 Toxic Vacuolation Not Reportable 05/06/22 06:25 Dohle Bodies Not Reportable 05/06/22 06:25 Pel[place]-Huet Anomaly Not Reportable 05/06/22 06:25 Emil Rods Not Reportable 05/06/22 06:25 Platelet Estimate Consistent w auto 05/06/22 06:25 Clumped Platelets Not Reportable 05/06/22 06:25 Plt Clumps, EDTA Not Reportable 05/06/22 06:25 Large Platelets Not Reportable 05/06/22 06:25 Giant Platelets Not Reportable 05/06/22 06:25 Platelet Satelliting Not Reportable 05/06/22 06:25 Plt Morphology Comment Not Reportable 05/06/22 06:25 RBC Morphology Not Reportable 05/06/22 06:25 Dimorphic RBCs Not Reportable 05/06/22 06:25 Polychromasia Not Reportable 05/06/22 06:25 Hypochromasia Not Reportable 05/06/22 06:25 Poikilocytosis 1+ 05/06/22 06:25 Anisocytosis 1+ 05/06/22 06:25 Microcytosis Not Reportable 05/06/22 06:25 Macrocytosis Not Reportable 05/06/22 06:25 Spherocytes Not Reportable 05/06/22 06:25 Pappenheimer Bodies Not Reportable 05/06/22 06:25 Sickle Cells Not Reportable 05/06/22 06:25 Target Cells Not Reportable 05/06/22 06:25 Tear Drop Cells Few 05/06/22 06:25 Ovalocytes Few 05/06/22 06:25 Helmet Cells Not Reportable 05/06/22 06:25 [place] Bodies Not Reportable 05/06/22 06:25 [place] Rings Not Reportable 05/06/22 06:25 [place] Cells Not Reportable 05/06/22 06:25 Bite Cells Not Reportable 05/06/22 06:25 Crenated Cell Not Reportable 05/06/22 06:25 Elliptocytes Few 05/06/22 06:25 Acanthocytes (Spur) Not Reportable 05/06/22 06:25 Rouleaux Not Reportable 05/06/22 06:25 Hemoglobin C Crystals Not Reportable 05/06/22 06:25 Schistocytes Not Reportable 05/06/22 06:25 Malaria parasites Not Reportable 05/06/22 06:25 Prashant Bodies Not Reportable 05/06/22 06:25 Hem Pathologist Commnt No 05/06/22 06:25 PT 14.4 Sec. (12.2-14.9) 05/02/22 22:01 INR 0.98 (0.87-1.13) 05/02/22 22:01 D-Dimer 1339.40 ng/mlDDU (0-234) H 05/05/22 07:41 Sodium 145 mmol/L (137-145) 05/06/22 06:25 Potassium 4.2 mmol/L (3.6-5.0) 05/06/22 06:25 Chloride 109.3 mmol/L (98-107) H 05/06/22 06:25 Carbon Dioxide 17 mmol/L (22-30) L 05/06/22 06:25 Anion Gap 23 mmol/L 05/06/22 06:25 BUN 44 mg/dL (7-17) H 05/06/22 06:25 Creatinine 2.2 mg/dL (0.6-1.2) H 05/06/22 06:25 Estimated GFR 27 ml/min 05/06/22 06:25 BUN/Creatinine Ratio 20 % 05/06/22 06:25 Glucose 134 mg/dL (65-100) H 05/06/22 06:25 Lactic Acid 1.50 mmol/L (0.7-2.0) 05/03/22 12:13 Calcium 9.1 mg/dL (8.4-10.2) 05/06/22 06:25 Phosphorus 3.10 mg/dL (2.5-4.5) 05/05/22 06:53 Magnesium 2.50 mg/dL (1.7-2.3) H 05/05/22 06:53 Ferritin 543.3 ng/mL (10.0-200.0) H 05/05/22 07:41 Total Bilirubin 0.30 mg/dL (0.1-1.2) 05/02/22 22:01 AST 42 units/L (5-40) H 05/02/22 22:01 ALT 16 units/L (7-56) 05/02/22 22:01 Alkaline Phosphatase 95 units/L (35-129) 05/02/22 22:01 Lactate Dehydrogenase 327 units/L (91-180) H 05/05/22 07:41 Total Creatine Kinase 1166 units/L (30-135) H 05/02/22 22:01 C-Reactive Protein 26.30 mg/dL (0.00-1.30) H 05/05/22 07:41 NT-Pro-B Natriuret Pep 823.3 pg/mL (0-900) 05/03/22 12:13 Total Protein 7.6 g/dL (6.3-8.2) 05/02/22 22:01 Albumin 3.7 g/dL (3.9-5) L 05/02/22 22:01 Albumin/Globulin Ratio 0.9 % 05/02/22 22:01 Procalcitonin 51.09 ng/mL (<0.15) 05/03/22 12:13 PTH Intact 129.9 pg/mL (15-65) H 05/03/22 12:13 Urine Color Yellow (Yellow) 05/02/22 15:00 Urine Turbidity Clear (Clear) 05/02/22 15:00 Urine pH 5.0 (5.0-7.0) 05/02/22 15:00 Ur Specific [place] 1.010 (1.003-1.030) 05/02/22 15:00 Urine Protein <30 mg dl mg/dL (Negative) 05/02/22 15:00 Urine Glucose (UA) Negative mg/dL (Negative) 05/02/22 15:00 Urine Ketones Negative mg/dL (Negative) 05/02/22 15:00 Urine Blood Negative (Negative) 05/02/22 15:00 Urine Nitrite Negative (Negative) 05/02/22 15:00 Urine Bilirubin Negative (Negative) 05/02/22 15:00 Urine Urobilinogen < 2.0 mg/dL (<2.0) 05/02/22 15:00 Ur Leukocyte Esterase Negative (Negative) 05/02/22 15:00 Urine WBC (Auto) 1.0 /HPF (0.0-6.0) 05/02/22 15:00 Urine RBC (Auto) 1.0 /HPF (0.0-6.0) 05/02/22 15:00 U Epithel Cells (Auto) 1.0 /HPF (0-13.0) 05/02/22 15:00 Urine Creatinine 178.0 mg/dL (0.1-20.0) H 05/03/22 15:00 Protein/Creatinin Ratio 0.24 05/03/22 15:00 Urine Total Protein 42 mg/dL (5-11.8) H 05/03/22 15:00 Complement C3 179 mg/dL (83-193) 05/03/22 12:13 Complement C4 51 mg/dL (15-57) 05/03/22 12:13 Coronavirus (PCR) Negative (Negative) 05/03/22 15:00 SARS-CoV-2 (PCR) Negative (Negative) 08/12/22 07:14 Microbiology: Microbiology 05/03/22 12:20 Peripheral/Venous Blood Culture - Preliminary NO GROWTH AFTER 72 HOURS 05/03/22 12:13 Peripheral/Venous Blood Culture - Preliminary NO GROWTH AFTER 72 HOURS Gonzalez/IV: Voiding Method Indwelling Catheter Active Medications - Current Medications Current Medications: Generic Name Dose Route Start Last Admin Trade Name Freq PRN Reason Stop Dose Admin Acetaminophen 650 mg 05/02/22 23:57 05/06/22 23:48 Acetaminophen 325 Mg Tab PO 650 mg Q4H PRN Administration Pain MILD(1-3)/Fever >100.5/PALMA Albuterol 2.5 mg 05/02/22 23:57 05/04/22 03:33 Albuterol 2.5 Mg/3 Ml Nebu IH 2.5 mg Q3HRT PRN Administration Shortness Of Breath Albuterol/Ipratropium 1 ampul 05/03/22 20:00 05/06/22 19:36 Ipratropium/Albuterol Sulfate 3 Ml Ampul.Neb IH 1 ampul TIDRT LUCIO Administration Amlodipine Besylate 5 mg 05/03/22 10:00 05/06/22 10:15 Amlodipine 5 Mg Tab PO 5 mg DAILY LUCIO Administration Aspirin 81 mg 05/03/22 10:00 05/06/22 10:16 Aspirin 81 Mg Tab Chew PO 81 mg QDAY LUCIO Administration Benztropine Mesylate 1 mg 05/03/22 08:00 05/06/22 20:58 Benztropine 1 Mg Tab PO 1 mg TID LUCIO Administration Carvedilol 12.5 mg 05/03/22 10:00 05/06/22 21:07 Carvedilol 12.5 Mg Tab PO 12.5 mg BID LUCIO Administration Dexamethasone 8 mg 05/04/22 14:00 05/06/22 10:15 Dexamethasone 4 Mg/Ml Vial IV 05/13/22 10:01 8 mg DAILY LUCIO Administration Famotidine 10 mg 05/03/22 10:00 05/06/22 21:07 Famotidine 10 Mg Tab PO 10 mg BID LUCIO Administration Hydralazine HCl 50 mg 05/03/22 10:00 05/06/22 21:06 Hydralazine 25 Mg Tab PO 50 mg BID LUCIO Administration Azithromycin 500 mg in 250 mls @ 250 mls/hr 05/04/22 14:00 05/06/22 13:55 Zithromax/Ns IV 250 mls/hr Q24H LUCIO Administration Ceftriaxone Sodium 1 gm in 50 mls @ 100 mls/hr 05/04/22 14:00 05/06/22 13:54 Rocephin/Ns 1 Gm/50 Ml IV 05/09/22 13:59 100 mls/hr Q24H LUCIO Administration Protocol Isosorbide Mononitrate 30 mg 05/03/22 10:00 05/06/22 10:15 Isosorbide Mononitrate Er 30 Mg Tab PO 30 mg DAILY LUCIO Administration Loperamide HCl 2 mg 05/05/22 12:00 05/07/22 05:29 Loperamide 2 Mg Cap PO 2 mg Q6H LUCIO Administration Ondansetron HCl 4 mg 05/02/22 23:57 05/05/22 14:03 Ondansetron 4 Mg/2 Ml Inj IV 4 mg Q8H PRN Administration Nausea And Vomiting Ondansetron HCl 4 mg 05/04/22 21:50 05/06/22 21:27 Ondansetron 4 Mg Odt Tab PO 4 mg Q8H PRN Administration Nausea And Vomiting Paroxetine HCl 40 mg 05/05/22 10:00 05/06/22 10:17 Paroxetine 20 Mg Tab PO 40 mg DAILY LUCIO Administration Pramipexole Dihydrochloride 0.5 mg 05/05/22 10:00 05/06/22 10:17 Pramipexole 0.5 Mg Tab PO 0.5 mg DAILY LUCIO Administration Pseudoephedrine/Acetam/Chlorphenir 15 ml 05/05/22 10:00 05/07/22 04:51 Guaifenesin/Codeine 100-10mg Oral Liqd 5 Ml PO 15 ml Q6H LUCIO Administration Sodium Chloride 10 ml 05/03/22 10:00 05/06/22 21:08 Sodium Chloride 0.9% 10 Ml Flush Syringe IV 10 ml BID LUCIO Administration Sodium Chloride 10 ml 05/02/22 23:57 Sodium Chloride 0.9% 10 Ml Flush Syringe IV PRN PRN LINE FLUSH Zolpidem Tartrate 5 mg 05/05/22 21:00 05/06/22 23:48 Zolpidem 5 Mg Tab PO 5 mg QHS PRN Administration Sleep
[2022-05-07] MEDS: BENZTROPINE 1 MG TAB PO SCH ×3 (08:00→21:15)
[2022-05-07 08:01] LABS: Basophils % (Auto) 0.1 % (0.0-1.8); Eosinophils # (Auto) 0.1 K/mm3 (0.0-0.4); Eosinophils % (Auto) 0.5 % (0.0-4.3); Hemoglobin 9.9 gm/dl (10.1-14.3); Lymphocytes # (Auto) 2.8 K/mm3 (1.2-5.4); Lymphocytes % (Auto) 24.4 % (13.4-35.0); Mean Corpuscular HGB Conc 32 % (30-34); Mean Corpuscular Volume 87 fl (79-97); Monocytes # (Auto) 1.1 K/mm3 (0.0-0.8); Monocytes % (Auto) 9.5 % (0.0-7.3); Platelet Count 292 K/mm3 (140-440); Red Blood Count 3.56 M/mm3 (3.65-5.03); Red Cell Distribution Width 17.6 % (13.2-15.2)
[2022-05-07] MEDS: IPRATROPIUM/ALBUTEROL SULFATE 3 ML AMPUL.NEB IH SCH ×3 (08:46→20:40)
[2022-05-07 09:16] LABS: Calcium 9.3 mg/dL (8.4-10.2)
[2022-05-07] MEDS: PRAMIPEXOLE 0.5 MG TAB PO SCH (09:22)
[2022-05-07] MEDS: ONDANSETRON 4 MG ODT TAB PO PRN (09:22)
[2022-05-07] MEDS: PARoxetine 20 MG TAB PO SCH (09:23)
[2022-05-07] MEDS: ASPIRIN 81 MG TAB CHEW PO SCH (09:24)
[2022-05-07] MEDS: hydrALAZINE 25 MG TAB PO SCH ×2 (09:24→21:19)
[2022-05-07] MEDS: carvediloL 12.5 MG TAB PO SCH ×2 (09:24→21:19)
[2022-05-07] MEDS: FAMOTIDINE 10 MG TAB PO SCH ×2 (09:24→21:20)
[2022-05-07] MEDS: amLODIPine 5 MG TAB PO SCH (09:25)
[2022-05-07] MEDS: dexAMETHasone 4 MG/ML VIAL IV SCH (09:37)
[2022-05-07] MEDS: AZITHROMYCIN/NS 500 MG/250 ML 500 MG/250 ML BAG IV SCH (13:59)
[2022-05-07] MEDS: cefTRIAXone/NS 1 GM/50 ML 1 GM/50 ML BAG IV SCH (13:59)
[2022-05-07] MEDS: HEPARIN 5,000 UNIT/1 ML VIAL SUB-Q SCH ×2 (14:00→21:18)
--- NOTE | 2022-05-07 15:28 | Progress Note ---
Assessment and Plan # Acute Kidney Disease: suspect underlying CKD in setting of solitary kidney, cardiac disease. PEYTON likely due to rhabdomyolysis s/p fall vs tubular injury in setting of acute illness, creatinine improving 6.2->3.9->2.6->2.2->2.2 - off isotonic fluid currently, use prn, encourage po hydration given hypernatremia - renal ultrasound reviewed- note solitary kidney s/p surgery, no acute issues - serologies pending; urinalysis, UP/C bland so less concern for GN involvement - PTH 129 consistent with secondary hyperparathyroidism in CKD, Ca/P WNL - avoid nephrotoxins - agree to hold diuretic, MIA/ARB for now - renally dose medications - strict Is/Os - no immediate need for renal replacement therapy # Mild Rhabdomyolysis: s/p IVF # Metabolic Acidosis: may have dilutional acidosis from normal saline, but will start po NaHCO3 for now # Lactic Acidosis, Possible Pneumonia: has history of CHF/cardiomyopathy, COVID test negative # Dementia: per primary # HTN: BP stable on current regimen, avoid hypotension Subjective Date of service: 05/07/22 Interval history: No acute issues noted, resting in bed Objective - Exam Narrative Exam: General appearance: Present: no acute distress, well-nourished - EENT Eyes: Present: PERRL ENT: hearing intact, clear oral mucosa - Neck Neck: Present: supple, normal ROM - Respiratory Respiratory effort: normal Respiratory: bilateral: CTA - Cardiovascular Heart Sounds: Present: S1 & S2. - Extremities Extremities: pulses symmetrical, No edema Peripheral Pulses: within normal limits - Abdominal General gastrointestinal: Present: soft, non-distended, normal bowel sounds Female genitourinary: Present: normal - Integumentary Integumentary: Present: clear, warm, dry - Musculoskeletal Musculoskeletal: gait normal, strength equal bilaterally - Psychiatric Psychiatric: appropriate mood/affect, intact judgment & insight - Neurologic Neurologic: CNII-XII intact, moves all extremities - Vital Signs Vital signs: Vital Signs - 12hr 05/07/22 05/07/22 05/07/22 05:32 08:46 10:00 Temperature 97.8 F Pulse Rate 65 Pulse Rate [ 70 Anterior Bilateral Throughout] Respiratory 18 Rate Respiratory 18 Rate [Anterior Bilateral Throughout] Blood Pressure 122/55 O2 Sat by Pulse 94 97 Oximetry - Lab 05/07/22 06:10 05/07/22 06:10 Most recent lab results Calcium 9.3 mg/dL (8.4-10.2) 05/07/22 06:10 Phosphorus 3.10 mg/dL (2.5-4.5) 05/05/22 06:53 Magnesium 2.50 mg/dL (1.7-2.3) H 05/05/22 06:53 Urine Creatinine 178.0 mg/dL (0.1-20.0) H 05/03/22 15:00 Urine Total Protein 42 mg/dL (5-11.8) H 05/03/22 15:00 Medications & Allergies - Medications Allergies/Adverse Reactions: Allergies lisinopril Allergy (Verified 05/02/22 18:21) Swelling morphine Allergy (Verified 05/02/22 18:21) Swelling Home Medications: Home Medications Medication Instructions Recorded Confirmed Last Taken Type Ondansetron [Zofran Odt] 8 mg PO BID 05/16/16 05/03/22 Unknown History Hydralazine HCl [Apresoline TAB] 50 mg PO BID 10/30/16 05/03/22 Unknown History HYDROcodone/Acetaminop 7.5-325 7.5 mg PO Q6H 11/01/16 05/03/22 Unknown History [[place] 7.5-325 mg per 15 ML] FLUoxetine HCL [Prozac] 20 mg PO DAILY 07/21/19 05/03/22 Unknown History Aspirin [Aspirin BABY CHEW TAB] 81 mg PO QDAY #30 tab.chew 07/23/19 05/03/22 Unknown Rx Benztropine [Cogentin] 1 mg PO TID #90 07/23/19 05/03/22 Unknown Rx Gabapentin 100 mg PO Q8HR #90 cap 07/23/19 05/03/22 Unknown Rx Ipratropium/Albuter (Nf) 2 puff IH QID #1 inha 07/23/19 05/03/22 Unknown Rx [Combivent (Nf)] Isosorbide Dinitrate [Isosorbide 30 mg PO DAILY #30 07/23/19 05/03/22 Unknown Rx Dinitrate ER] Lasix TAB 40 mg PO DAILY #30 07/23/19 05/03/22 Unknown Rx Losartan [Cozaar] 100 mg PO DAILY #30 tablet 07/23/19 05/03/22 Unknown Rx Mirtazapine [Remeron 15mg TAB] 15 mg PO PRN #30 07/23/19 05/03/22 Unknown Rx PARoxetine [Paxil] 40 mg PO DAILY #30 tablet 07/23/19 05/03/22 Unknown Rx Pantoprazole [Protonix TAB] 40 mg PO DAILY #30 tablet 07/23/19 05/03/22 Unknown Rx Potassium Chloride [K-Dur] 20 meq PO QDAY #30 07/23/19 05/03/22 Unknown Rx Pramipexole [Mirapex] 0.5 mg PO DAILY #30 tablet 07/23/19 05/03/22 Unknown Rx Zolpidem [Ambien] 5 mg PO QHS PRN #30 tablet 07/23/19 05/03/22 Unknown Rx amLODIPine 5 mg PO DAILY #30 07/23/19 05/03/22 Unknown Rx carvediloL [Coreg] 12.5 mg PO BID #60 07/23/19 05/03/22 Unknown Rx oxyCODONE /ACETAMINOPHEN [Percocet 2 tab PO Q6H PRN #15 tablet 07/23/19 05/03/22 Unknown Rx 5/325 mg] Active Medications: Generic Name Dose Route Start Last Admin Trade Name Freq PRN Reason Stop Dose Admin Acetaminophen 650 mg 05/02/22 23:57 05/06/22 23:48 Acetaminophen 325 Mg Tab PO 650 mg Q4H PRN Administration Pain MILD(1-3)/Fever >100.5/PALMA Albuterol 2.5 mg 05/02/22 23:57 05/04/22 03:33 Albuterol 2.5 Mg/3 Ml Nebu IH 2.5 mg Q3HRT PRN Administration Shortness Of Breath Albuterol/Ipratropium 1 ampul 05/03/22 20:00 05/07/22 13:50 Ipratropium/Albuterol Sulfate 3 Ml Ampul.Neb IH Not Given TIDRT LUCIO Amlodipine Besylate 5 mg 05/03/22 10:00 05/07/22 09:25 Amlodipine 5 Mg Tab PO 5 mg DAILY LUCIO Administration Aspirin 81 mg 05/03/22 10:00 05/07/22 09:24 Aspirin 81 Mg Tab Chew PO 81 mg QDAY LUCIO Administration Benztropine Mesylate 1 mg 05/03/22 08:00 05/07/22 14:01 Benztropine 1 Mg Tab PO 1 mg TID LUCIO Administration Carvedilol 12.5 mg 05/03/22 10:00 05/07/22 09:24 Carvedilol 12.5 Mg Tab PO 12.5 mg BID LUCIO Administration Dexamethasone 8 mg 05/04/22 14:00 05/07/22 09:37 Dexamethasone 4 Mg/Ml Vial IV 05/13/22 10:01 8 mg DAILY LUCIO Administration Famotidine 10 mg 05/03/22 10:00 05/07/22 09:24 Famotidine 10 Mg Tab PO 10 mg BID LUCIO Administration Heparin Sodium (Porcine) 5,000 unit 05/07/22 14:00 05/07/22 14:00 Heparin 5,000 Unit/1 Ml Vial SUB-Q 5,000 unit Q8HR LUCIO Administration Hydralazine HCl 50 mg 05/03/22 10:00 05/07/22 09:24 Hydralazine 25 Mg Tab PO 50 mg BID LUCIO Administration Azithromycin 500 mg in 250 mls @ 250 mls/hr 05/04/22 14:00 05/07/22 13:59 Zithromax/Ns IV 250 mls/hr Q24H LUCIO Administration Ceftriaxone Sodium 1 gm in 50 mls @ 100 mls/hr 05/04/22 14:00 05/07/22 13:59 Rocephin/Ns 1 Gm/50 Ml IV 05/09/22 13:59 100 mls/hr Q24H LUCIO Administration Protocol Dextrose 1,000 mls @ 100 mls/hr 05/07/22 12:00 D5w IV DIRECT LUCIO Isosorbide Mononitrate 30 mg 05/03/22 10:00 05/07/22 09:24 Isosorbide Mononitrate Er 30 Mg Tab PO 30 mg DAILY LUCIO Administration Loperamide HCl 2 mg 05/07/22 12:00 05/07/22 12:00 Loperamide 2 Mg Cap PO 2 mg Q4H LUCIO Administration Ondansetron HCl 4 mg 05/02/22 23:57 05/05/22 14:03 Ondansetron 4 Mg/2 Ml Inj IV 4 mg Q8H PRN Administration Nausea And Vomiting Ondansetron HCl 4 mg 05/04/22 21:50 08/14/22 09:22 Ondansetron 4 Mg Odt Tab PO 4 mg Q8H PRN Administration Nausea And Vomiting Paroxetine HCl 40 mg 05/05/22 10:00 05/07/22 09:23 Paroxetine 20 Mg Tab PO 40 mg DAILY LUCIO Administration Pramipexole Dihydrochloride 0.5 mg 05/05/22 10:00 05/07/22 09:22 Pramipexole 0.5 Mg Tab PO 0.5 mg DAILY LUCIO Administration Pseudoephedrine/Acetam/Chlorphenir 15 ml 05/05/22 10:00 05/07/22 09:33 Guaifenesin/Codeine 100-10mg Oral Liqd 5 Ml PO 15 ml Q6H LUCIO Administration Sodium Chloride 10 ml 05/03/22 10:00 05/07/22 09:22 Sodium Chloride 0.9% 10 Ml Flush Syringe IV 10 ml BID LUCIO Administration Sodium Chloride 10 ml 05/02/22 23:57 Sodium Chloride 0.9% 10 Ml Flush Syringe IV PRN PRN LINE FLUSH Zolpidem Tartrate 5 mg 05/05/22 21:00 05/06/22 23:48 Zolpidem 5 Mg Tab PO 5 mg QHS PRN Administration Sleep
[2022-05-07] MEDS: SODIUM BICARBONATE 650 MG TAB PO SCH (21:15)
[2022-05-07] MEDS: DEXTROSE 5% IN WATER 1,000 ML IV SCH (21:30)
[2022-05-07] MEDS: ZOLPIDEM 5 MG TAB PO PRN (21:30)
[2022-05-07] MEDS: ONDANSETRON 4 MG/2 ML INJ IV PRN (21:30)
[2022-05-07 23:29] LABS: Albumin 3.2 g/dL (3.8-4.8); Gamma Globulin 0.7 g/dL (0.8-1.7)
[2022-05-08] MEDS: guaiFENesin/CODEINE 100-10MG ORAL LIQD 5 ML PO SCH ×3 (03:12→16:21)
[2022-05-08] MEDS: LOPERAMIDE 2 MG CAP PO SCH ×5 (03:12→16:21)
[2022-05-08] MEDS: HEPARIN 5,000 UNIT/1 ML VIAL SUB-Q SCH ×2 (05:38→16:14)
[2022-05-08] MEDS: DEXTROSE 5% IN WATER 1,000 ML IV SCH (05:43)
[2022-05-08] MEDS: IPRATROPIUM/ALBUTEROL SULFATE 3 ML AMPUL.NEB IH SCH ×2 (07:43→13:55)
[2022-05-08 08:27] LABS: Hematocrit 32.1 % (30.3-42.9); Hemoglobin 10.3 gm/dl (10.1-14.3); Mean Corpuscular HGB Conc 32 % (30-34); Mean Corpuscular Volume 87 fl (79-97); Platelet Count 317 K/mm3 (140-440); Red Blood Count 3.71 M/mm3 (3.65-5.03); Red Cell Distribution Width 17.3 % (13.2-15.2)
[2022-05-08] MEDS: BENZTROPINE 1 MG TAB PO SCH ×2 (08:30→16:21)
[2022-05-08] MEDS: ONDANSETRON 4 MG/2 ML INJ IV PRN (08:33)
[2022-05-08 08:34] LABS: Calcium 8.7 mg/dL (8.4-10.2)
[2022-05-08 09:52] LABS: Basophils % (Manual) 0 % (0.0-1.8); Myelocytes # (Manual) 0.1 K/mm3; Total Cells Counted 100
[2022-05-08 09:55] LABS: Eosinophils % (Manual) 0 % (0.0-4.3)
[2022-05-08 09:56] LABS: Platelet Estimate Consistent w Auto; RBC Morphology Normal
[2022-05-08] MEDS ORDERED: DEXAMETHASONE 4 MG TAB PO SCH (10:00)
[2022-05-08 10:48] LABS: Calcium 8.7 mg/dL (8.4-10.2)
[2022-05-08 11:53] VITALS: BP 144/78
[2022-05-08] MEDS: carvediloL 12.5 MG TAB PO SCH (11:54)
[2022-05-08] MEDS: PRAMIPEXOLE 0.5 MG TAB PO SCH (11:54)
[2022-05-08] MEDS: SODIUM BICARBONATE 650 MG TAB PO SCH (11:55)
[2022-05-08] MEDS: PARoxetine 20 MG TAB PO SCH (11:55)
[2022-05-08] MEDS: FAMOTIDINE 10 MG TAB PO SCH (11:56)
[2022-05-08] MEDS: ASPIRIN 81 MG TAB CHEW PO SCH (11:56)
[2022-05-08] MEDS: amLODIPine 5 MG TAB PO SCH (11:57)
[2022-05-08] MEDS: hydrALAZINE 25 MG TAB PO SCH (11:57)
--- NOTE | 2022-05-08 12:27 | Discharge Summary ---
Providers - Providers Date of Admission: 05/02/22 23:57 Date of discharge: 05/08/22 Attending physician: CLARY BUNCH MD 05/02/22 23:57 Consult to Physician [CONS] Routine Comment: Consulting Provider: KIM DELUCA Physician Instructions: Reason For Exam: peyton 05/07/22 11:34 Midline [Consult to PICC Line RN] [CONS] Routine Reason For Exam: Multiple blown IV lines Type Line:: Midline Primary care physician: TOY PAINTER Hospitalization Reason for admission: Acute hypoxic respiratory failure, PEYTON on CKD stage IV Condition: Stable Pertinent studies: Reviewed. Procedures: None. Hospital course: The patient is a 52-year-old female past medical history of hypertension, congestive heart failure, osteoarthritis, anxiety, GERD, insomnia who presented to the ED with generalized body aches from a fall from her bed approximately 2 days prior. Patient denied any fevers or chills. On presentation, the patient was found to be hemodynamically stable and saturating at 94% on room air prompting the use of supplemental oxygen. Given the patient's description of myalgias, fatigue, and acute hypoxic respiratory failure, the patient was admitted with concerns for COVID-19 pneumonia. Patient had labs remarkable for a creatinine of 6.2 (baseline unknown). Patient was found to be unremarkable for COVID-19 infection. She was initiated on antibiotics for presumed community-acquired pneumonia secondary to gram-negative and atypical bacteria. Patient has since been weaned off of supplemental oxygen to room air. Patient has completed her antibiotic course. Nephrology was consulted for management of her PEYTON on CKD stage III. Patient received IV fluid resuscitation with significant improvement in her renal function. Patient is medically cleared for discharge. Disposition: 01 HOME / SELF CARE / HOMELESS Final Discharge Diagnosis (Prints w/discharge instructions): Acute hypoxic respiratory failure, pneumonia secondary to gram-negative or atypical bacteria, lactic acidosis, PEYTON on CKD stage IV, elevated D-dimer, diarrhea, rhabdomyolysisruled out, chronic systolic heart failure, cardiomyopathy, dementia, mild protein caloric malnutrition Time spent for discharge: 45 min Core Measure Documentation - Palliative Care Palliative Care/ Comfort Measures: Not Applicable - Core Measures Any of the following diagnoses?: history only Exam - Constitutional Vitals: Temp Pulse Resp BP Pulse Ox 99.2 F 72 20 144/78 100 05/08/22 04:28 05/08/22 11:54 05/08/22 11:52 05/08/22 11:54 05/08/22 11:52 General appearance: Present: no acute distress, well-nourished - EENT Eyes: Present: PERRL, EOM intact ENT: hearing intact, clear oral mucosa, dentition normal - Neck Neck: Present: supple, normal ROM - Respiratory Respiratory effort: normal Respiratory: bilateral: CTA - Cardiovascular Rhythm: regular Heart Sounds: Present: S1 & S2 - Extremities Extremities: no ischemia, pulses intact, pulses symmetrical, No edema, normal temperature, normal color, Full ROM Peripheral Pulses: within normal limits - Abdominal General gastrointestinal: Present: soft, non-tender, non-distended, normal bowel sounds Female genitourinary: Present: deferred - Rectal Rectal Exam: deferred - Integumentary Integumentary: Present: clear, warm, dry - Musculoskeletal Musculoskeletal: strength equal bilaterally - Psychiatric Psychiatric: appropriate mood/affect, intact judgment & insight, cooperative - Neurologic Neurologic: CNII-XII intact, moves all extremities - Allied Health Allied health notes reviewed: nursing, social work Plan Activity: no restrictions Diet: low salt Additional Instructions: The patient is a 52-year-old female past medical history of hypertension, congestive heart failure, osteoarthritis, anxiety, GERD, insomnia who presented to the ED with generalized body aches from a fall from her bed approximately 2 days prior. Patient denied any fevers or chills. On presentation, the patient was found to be hemodynamically stable and saturating at 94% on room air prompting the use of supplemental oxygen. Given the patient's description of myalgias, fatigue, and acute hypoxic respiratory failure, the patient was admitted with concerns for COVID-19 pneumonia. Patient had labs remarkable for a creatinine of 6.2 (baseline unknown). Patient was found to be unremarkable for COVID-19 infection. She was initiated on antibiotics for presumed community-acquired pneumonia secondary to gram-negative and atypical bacteria. Patient has since been weaned off of supplemental oxygen to room air. Patient has completed her antibiotic course. Nephrology was consulted for management of her PEYTON on CKD stage III. Patient received IV fluid resuscitation with significant improvement in her renal function. Patient is medically cleared for discharge. Care Plan Goals: Patient is medically clear for discharge. Assessment: The patient is a 52-year-old female past medical history of hypertension, congestive heart failure, osteoarthritis, anxiety, GERD, insomnia who presented to the ED with generalized body aches from a fall from her bed approximately 2 days prior. Patient denied any fevers or chills. On presentation, the patient was found to be hemodynamically stable and saturating at 94% on room air prompting the use of supplemental oxygen. Given the patient's description of myalgias, fatigue, and acute hypoxic respiratory failure, the patient was admitted with concerns for COVID-19 pneumonia. Patient had labs remarkable for a creatinine of 6.2 (baseline unknown). Patient was found to be unremarkable for COVID-19 infection. She was initiated on antibiotics for presumed community -acquired pneumonia secondary to gram-negative and atypical bacteria. Patient has since been weaned off of supplemental oxygen to room air. Patient has completed her antibiotic course. Nephrology was consulted for management of her PEYTON on CKD stage III. Patient received IV fluid resuscitation with significant improvement in her renal function. Patient is medically cleared for discharge. Follow up with: PRIMARY CAREMD [Primary Care Provider] - 3-5 Days Forms: Work/School Release Form Prescriptions: dexAMETHasone [Decadron] 8 mg PO DAILY #5 tablet Loperamide [Imodium] 2 mg PO Q4H PRN #15 capsule PRN Reason: Diarrhea
--- NOTE | 2022-05-08 19:34 | Progress Note ---
Assessment and Plan # Acute Kidney Disease: suspect underlying CKD in setting of solitary kidney, cardiac disease. PEYTON likely due to rhabdomyolysis s/p fall vs tubular injury in setting of acute illness, creatinine improving 6.2->3.9->2.6->2.2->2.2-->2.0. - S/p isotonic fluid currently, encouraged po hydration - renal ultrasound reviewed- note solitary kidney s/p surgery, no acute issues - serologies pending; urinalysis, UP/C bland so less concern for GN involvement - PTH 129 consistent with secondary hyperparathyroidism in CKD, Ca/P WNL - avoid nephrotoxins - agree to hold diuretic, MIA/ARB for now - renally dose medications - strict Is/Os - no immediate need for renal replacement therapy # Mild Rhabdomyolysis: s/p IVF # Metabolic Acidosis: may have dilutional acidosis from normal saline, continue NaHCO3 for now # Lactic Acidosis, Possible Pneumonia: has history of CHF/cardiomyopathy, COVID test negative # Dementia: per primary # HTN: BP stable on current regimen, avoid hypotension Subjective Date of service: 05/08/22 Principal diagnosis: PEYTON Interval history: Resting in bed. Notes acceptable UOP. Objective - Exam Narrative Exam: General appearance: Present: no acute distress, well-nourished - EENT Eyes: Present: PERRL ENT: hearing intact, clear oral mucosa - Neck Neck: Present: supple, normal ROM - Respiratory Respiratory effort: normal Respiratory: bilateral: CTA - Cardiovascular Heart Sounds: Present: S1 & S2. - Extremities Extremities: pulses symmetrical, No edema Peripheral Pulses: within normal limits - Abdominal General gastrointestinal: Present: soft, non-distended, normal bowel sounds Female genitourinary: Present: normal - Integumentary Integumentary: Present: clear, warm, dry - Musculoskeletal Musculoskeletal: gait normal, strength equal bilaterally - Psychiatric Psychiatric: appropriate mood/affect, intact judgment & insight - Neurologic Neurologic: CNII-XII intact, moves all extremities - Vital Signs Vital signs: Vital Signs - 12hr 05/08/22 05/08/22 05/08/22 07:43 10:00 11:52 Pulse Rate 72 Pulse Rate [ 60 Anterior Bilateral Throughout] Respiratory 20 Rate Respiratory 18 Rate [Anterior Bilateral Throughout] Blood Pressure Blood Pressure 144/78 [Left] O2 Sat by Pulse 100 100 100 Oximetry 05/08/22 05/08/22 11:54 13:55 Pulse Rate 72 Pulse Rate [ 67 Anterior Bilateral Throughout] Respiratory Rate Respiratory 18 Rate [Anterior Bilateral Throughout] Blood Pressure 144/78 Blood Pressure [Left] O2 Sat by Pulse Oximetry - Lab 05/08/22 07:25 05/08/22 09:59 Most recent lab results Calcium 8.7 mg/dL (8.4-10.2) 05/08/22 09:59 Phosphorus 3.10 mg/dL (2.5-4.5) 05/05/22 06:53 Magnesium 2.50 mg/dL (1.7-2.3) H 05/05/22 06:53 Urine Creatinine 178.0 mg/dL (0.1-20.0) H 05/03/22 15:00 Urine Total Protein 42 mg/dL (5-11.8) H 05/03/22 15:00 Medications & Allergies - Medications Allergies/Adverse Reactions: Allergies lisinopril Allergy (Verified 05/02/22 18:21) Swelling morphine Allergy (Verified 05/02/22 18:21) Swelling Home Medications: Home Medications Medication Instructions Recorded Confirmed Last Taken Type Ondansetron [Zofran Odt] 8 mg PO BID 05/16/16 05/03/22 Unknown History Hydralazine HCl [Apresoline TAB] 50 mg PO BID 10/30/16 05/03/22 Unknown History HYDROcodone/Acetaminop 7.5-325 7.5 mg PO Q6H 11/01/16 05/03/22 Unknown History [[place] 7.5-325 mg per 15 ML] FLUoxetine HCL [Prozac] 20 mg PO DAILY 07/21/19 05/03/22 Unknown History Aspirin [Aspirin BABY CHEW TAB] 81 mg PO QDAY #30 tab.chew 07/23/19 05/03/22 Unknown Rx Benztropine [Cogentin] 1 mg PO TID #90 07/23/19 05/03/22 Unknown Rx Gabapentin 100 mg PO Q8HR #90 cap 07/23/19 05/03/22 Unknown Rx Ipratropium/Albuter (Nf) 2 puff IH QID #1 inha 07/23/19 05/03/22 Unknown Rx [Combivent Inhaler] Isosorbide Dinitrate [Isosorbide 30 mg PO DAILY #30 07/23/19 05/03/22 Unknown Rx Dinitrate ER] Lasix TAB 40 mg PO DAILY #30 07/23/19 05/03/22 Unknown Rx Losartan [Cozaar] 100 mg PO DAILY #30 tablet 07/23/19 05/03/22 Unknown Rx Mirtazapine [Remeron 15mg TAB] 15 mg PO PRN #30 07/23/19 05/03/22 Unknown Rx PARoxetine [Paxil] 40 mg PO DAILY #30 tablet 07/23/19 05/03/22 Unknown Rx Pantoprazole [Protonix TAB] 40 mg PO DAILY #30 tablet 07/23/19 05/03/22 Unknown Rx Potassium Chloride [K-Dur] 20 meq PO QDAY #30 07/23/19 05/03/22 Unknown Rx Pramipexole [Mirapex] 0.5 mg PO DAILY #30 tablet 07/23/19 05/03/22 Unknown Rx Zolpidem [Ambien] 5 mg PO QHS PRN #30 tablet 07/23/19 05/03/22 Unknown Rx amLODIPine 5 mg PO DAILY #30 07/23/19 05/03/22 Unknown Rx carvediloL [Coreg] 12.5 mg PO BID #60 07/23/19 05/03/22 Unknown Rx Loperamide [Imodium] 2 mg PO Q4H PRN #15 capsule 05/08/22 Unknown Rx dexAMETHasone [Decadron] 8 mg PO DAILY #5 tablet 05/08/22 Unknown Rx
[2022-05-09 22:28] LABS: Myeloperoxidase Antibody <1.0 AI (<1.0)
[2022-05-10 12:21] LABS: ANA Screen, IFA Negative (Negative)
== END 2022-05-08 17:45 | disposition home or self-care (01) | DRG 177 ==
LOC: ED 18:15 → 3A 23:57
PROVIDERS: ADMIT Hospitalist; ATTEND Student in an Organized Health Care Education/Training Program
DX: J15.6 Pneumonia due to other Gram-negative bacteria (principal); J96.01 Acute respiratory failure with hypoxia; E87.2 Acidosis; I13.0 Hypertensive heart and chronic kidney disease with heart failure and stage 1 through stage 4 chronic kidney disease, or unspecified chronic kidney disease; I50.22 Chronic systolic (congestive) heart failure; E44.1 Mild protein-calorie malnutrition; I42.9 Cardiomyopathy, unspecified; N18.4 Chronic kidney disease, stage 4 (severe); N17.9 Acute kidney failure, unspecified; Z20.822 Contact with and (suspected) exposure to COVID-19; F03.90 Unspecified dementia, unspecified severity, without behavioral disturbance, psychotic disturbance, mood disturbance, and anxiety; F14.10 Cocaine abuse, uncomplicated; M19.90 Unspecified osteoarthritis, unspecified site; K21.9 Gastro-esophageal reflux disease without esophagitis; R19.7 Diarrhea, unspecified; Z68.25 Body mass index [BMI] 25.0-25.9, adult; M17.0 Bilateral primary osteoarthritis of knee; Z90.49 Acquired absence of other specified parts of digestive tract; Z90.710 Acquired absence of both cervix and uterus; Z79.82 Long term (current) use of aspirin; Z79.899 Other long term (current) drug therapy; Z82.49 Family history of ischemic heart disease and other diseases of the circulatory system; Z71.51 Drug abuse counseling and surveillance of drug abuser; Z88.5 Allergy status to narcotic agent; Z88.8 Allergy status to other drugs, medicaments and biological substances
CPT/HCPCS: 36415; 71045; 76775; 80048; 80053; 81001; 82140; 82550; 82570; 82728; 83615; 83735; 83880; 83970; 84100; 84145; 84156; 84165; 85007; 85025; 85379; 85610; 86021; 86038; 86140; 86160; 87040; 87806; 93005; 93970; 94640; 94760; G0378; J3490; J7070; J0456; J0696; J1100; J1644; J2405; J7030; J8540; Q0162; U0003